=== PATIENT | male | born 1955 | race Caucasian/White ===

== ENCOUNTER 2019-12-06 00:54 | Day surgery (SDC) | payer BC, SELFPAY ==
[2019-12-05 09:56] VITALS: BMI 28.5
[2019-12-06 12:53] VITALS: BP 137/77; PULSE 75; RESP 16; TEMP 36.8; O2SAT 97
[2019-12-06] MEDS: LACTATED RINGERS 1,000 ML 150 ML IV CONT (13:09)
--- NOTE | 2019-12-06 13:18 | P.PNAN_ITS ---
Anes - Initial Pre Proc Eval Procedure: Operation Date: 12/06/19 14:00 Proposed Procedures p Screening Colonoscopy - Tate Wadsworth MD Date/Time: 12/06/19 13:18 Surgeon: Tate Wadsworth MD Pre Op Diagnosis: Neoplasm Screening Patient Data Age: 63 Gender: M Height: 5 ft 11 in Weight: 89.8 kg Last Vital Signs Temp 98.2 F 12/06/19 12:53 Pulse 75 12/06/19 12:53 Resp 16 12/06/19 12:53 BP 137/77 12/06/19 12:53 Pulse Ox 97 12/06/19 12:53 Allergies Allergy/AdvReac Type Severity Reaction Status Date / Time No Known Allergies Allergy Unknown Verified 12/06/19 12:51 Home Medications Medication Instructions Recorded Confirmed Type acetaminophen 650 mg PO Q4H PRN 08/25/19 12/06/19 History amlodipine 5 mg PO DAILY 08/25/19 12/06/19 History metoprolol tartrate 50 mg PO DAILY 08/25/19 12/06/19 History Patient hx anesthesia problems: none Family hx anesthesia problems: none [facility] Past Medical History Medical History (Updated 12/06/19 @ 13:12 by Robert Valdez MD) Hypertension Family History Family History (Updated 03/24/18 @ 15:19 by DOCTOR UNKNOWN) Grandparent Family history of malignant neoplasm Family history of malignant neoplasm of breast Family history of malignant neoplasm of breast in first degree relative Sibling Family history of thyroid disease Other Family history of arthritis Social History Social History Smoking status: Current every day smoker Alcohol intake: current Anes - Eval Final PreProcedure Day of Procedure 12/06/19 13:18 Patient weight: normal Heart: regular rate and rhythm Lungs: clear to auscultation Airway: Mallampati scale class II Neurological: alert and oriented Last oral intake: >/= 8 hours ASA classification: II Emergent: no Anesthetic plan: proceed Anesthesia type and monitoring: general GIVS and standard monitoring Informed Consent: The patient's anesthetic plan and its attendant risks and benefits were discussed with the patient/family/POA. Questions were solicited and answers provided to the satisfaction of the patient/family/POA.
--- NOTE | 2019-12-06 14:00 | PM.HPGS ---
History of Present Illness History of Present Illness Consent: Risks, benefits, and alternatives have been discussed and questions answered. Patient agrees to proceed with procedure. Chief complaint: Neoplasm Screening Narrative: Thanh Roe is a 63 year old male here for screening colonoscopy, last one 10 years ago. Review of Systems Constitutional: Constitutional: Denies headache(s) and Denies weakness Eyes: Eyes: Denies blurry vision ENT: Reports Normal hearing present, Denies headache(s) and Denies neck pain Cardiovascular: Cardiovascular: Denies chest pain and Denies dyspnea Respiratory: Respiratory: Denies dyspnea Gastrointestinal: Gastrointestinal: Reports no additional gastrointestinal complaints Genitourinary: Genitourinary: Denies dysuria Musculoskeletal: Musculoskeletal: Denies neck pain Integumentary/Breasts: Skin/Breast: Denies dry skin Neurologic: Reports Normal hearing present, Denies headache(s) and Denies weakness Psychiatric: Psychiatric: Denies anxiety Endocrine: Endocrine: Denies change in body appearance Hematologic/Lymphatic: Hematologic/Lymphatic: Denies easy bleeding Allergic/Immunologic: Allergic/Immunologic: Denies urticaria PMFSH Past Medical History Medical History (Updated 12/06/19 @ 14:01 by Tate Wadsworth MD) Colon cancer screening Hypertension Family History Family History (Updated 03/24/18 @ 15:19 by DOCTOR UNKNOWN) Grandparent Family history of malignant neoplasm Family history of malignant neoplasm of breast Family history of malignant neoplasm of breast in first degree relative Sibling Family history of thyroid disease Other Family history of arthritis Social History Social History Smoking status: Current every day smoker Alcohol intake: current Meds Home Medications and Allergies Home Medications Medication Instructions Recorded Confirmed Type acetaminophen 650 mg PO Q4H PRN 08/25/19 12/06/19 History amlodipine 5 mg PO DAILY 08/25/19 12/06/19 History metoprolol tartrate 50 mg PO DAILY 08/25/19 12/06/19 History Allergies Allergy/AdvReac Type Severity Reaction Status Date / Time No Known Allergies Allergy Unknown Verified 12/06/19 12:51 Vital Signs Vital Signs - 24 hr 12/06/19 12:53 Temperature 98.2 F Pulse Rate 75 Respiratory Rate 16 Blood Pressure 137/77 Pulse Oximetry 97 Exam Const: General: comfortable and no acute distress HENMT: General nose exam: Normal nares present Eyes: General: appearance normal, both eyes and all related structures Neck: Neck: no JVD Resp: Auscultation: clear to auscultation bilaterally Cardio: Rate: regular rate Rhythm: regular rhythm GI: Inspection: non-distended GI Palp: Yes Soft to palpation Skin: General skin exam: normal color Neuro: General: gait normal Speech: normal speech Extrem: General: normal to inspection Psych: Mental Status: mental status grossly normal Assessment and Plan Assessment and plan (1) Colon cancer screening: Code(s): Z12.11 - Encounter for screening for malignant neoplasm of colon Status: Acute Assessment and Plan: will proceed with colonoscopy (2) Benign essential hypertension: Code(s): I10 - Essential (primary) hypertension Status: Acute
[2019-12-06 14:34] VITALS: BP 106/58; PULSE 85; RESP 27; O2SAT 93
[2019-12-06 14:44] VITALS: BP 103/56; PULSE 82; RESP 26; O2SAT 93
[2019-12-06 14:54] VITALS: BP 134/74; PULSE 75; RESP 21; O2SAT 100
== END 2019-12-06 15:05 | disposition home or self-care (01) ==
PROVIDERS: PCP Internal Medicine; Visit Provider Internal Medicine Gastroenterology
PROC: 0DJD8ZZ Inspection of Lower Intestinal Tract, Via Natural or Artificial Opening Endoscopic (ICD-10-PCS; CPT 45378; principal; 2019-12-06 14:00)
DX: Z12.11 Encounter for screening for malignant neoplasm of colon (principal); D12.3 Benign neoplasm of transverse colon; D12.4 Benign neoplasm of descending colon; K63.5 Polyp of colon; K57.30 Diverticulosis of large intestine without perforation or abscess without bleeding; K64.8 Other hemorrhoids; I10 Essential (primary) hypertension; F17.210 Nicotine dependence, cigarettes, uncomplicated
CPT/HCPCS: 45385; 88305; J2704; J7120

== ENCOUNTER 2020-05-04 15:09 | Emergency (ER) | payer BC, SELFPAY ==
--- NOTE | ~2020-05-04 | CT_ITS ---
EXAMINATION: CT abdomen pelvis wo con DATE: 05/04/2020 16:04 INDICATION: Right lower quadrant pain TECHNIQUE: Computed tomography (CT) of the abdomen and pelvis was performed without intravenous contr ast. The dose-length product was 721.48 mGy-cm. Automated exposure control and iterative reconstructi on technique were employed. COMPARISON: CT dated 12/13/2013 FINDINGS: Lung bases are unremarkable. No significant pleural or pericardial effusion. Heart size nor mal. Moderate size hiatal hernia. There is a 3-4 mm right ureteral stone just proximal to the UVJ wit h mild right hydroureteronephrosis. There is perinephric and periureteral edema. There is a 2.6 cm ri ght renal cyst. There are multiple left renal stones, largest being 3 mm maximum dimension. There is atherosclerosis of the aorta. Bladder is unremarkable. There is a 4 cm left adrenal adenoma without s ignificant change. The liver, spleen, and pancreas within normal limits for noncontrast CT. Small fat-containing umbilic al hernia. Nonobstructive bowel gas pattern. Normal appendix. Gallbladder is present. There is athero sclerosis of the aorta without aneurysm. No lymphadenopathy. Colonic diverticulosis without evidence for diverticulitis. No free air or free fluid. Moderate lumbar spondylosis. IMPRESSION: 1. 3-4 mm distal right ureteral stone just proximal to the UVJ. There is mild right hydroureteronephr osis with perinephric and periureteral edema. 2: Nonobstructing left nephrolithiasis. 3: 4 cm left adrenal adenoma versus hyperplasia. Reviewed, dictated and finalized at location A. IMPRESSION: 1. 3-4 mm distal right ureteral stone just proximal to the UVJ. There is mild r ight hydroureteronephrosis with perinephric and periureteral edema. 2: Nonobstructing left nephrolithiasis. 3: 4 cm left adrenal adenoma versus hyperplasia.
[2020-05-04 15:24] VITALS: BP 207/95; PULSE 82; RESP 20; TEMP 36.6; O2SAT 98
[2020-05-04 15:37] LABS: Basophils Percent Auto 0.2 % (0.2-1.2); Eosinophils Percent Auto 0.3 % (0-4.4); Hematocrit 47.2 % (42.0-52.0); Hemoglobin 15.9 g/dL (14.0-18.0); Immature Granulocyte Absolute 0.05 K/mm3 (0.00-0.031); Immature Granulocyte Percent A 0.4 % (0-0.5); Lymphocytes Absolute Auto 1.58 K/mm3 (0.9-3.2); Lymphocytes Percent Auto 12.9 % (18.3-44.2); Mean Corpuscular HGB Conc 33.7 g/dl (32-36); Mean Corpuscular Hemoglobin 31.5 pg (26-34); Mean Corpuscular Volume 93.5 fl (80-100); Mean Platelet Volume 10.2 fl (7.4-10.4); Monocytes Absolute Auto 0.8 K/mm3 (0.1-0.6); Monocytes Percent Auto 6.1 % (2.6-8.5); Neutrophils Absolute Auto 9.8 K/mm3 (1.3-6.7); Neutrophils Percent Auto 80.1 % (45.5-73.1); Platelet Count Result 246 k/mm3 (150-375); Red Blood Count 5.05 M/mm3 (4.6-6.20); Red Cell Distribution Width 12.7 % (11.5-14.5); White Blood Count 12.3 K/mm3 (4.5-10.0)
[2020-05-04] MEDS: MORPHINE SULFATE 4 MG/ML INJ IV PUSH ×2 (15:46→16:55)
[2020-05-04] MEDS: SODIUM CHLORIDE 0.9% IV 1,000 ML 999 ML IV CONT ×2 (15:46→16:55)
--- NOTE | 2020-05-04 15:47 | ED.ABDPAIN ---
HPI - Abdominal Pain General Chief Complaint: Abdominal Pain Stated Complaint: ABD PAIN X1D Time Seen by Provider: 05/04/20 15:23 History of Present Illness HPI narrative: Patient is a 64-year-old man who presents the ER with abdominal pain. Began yesterday and was in his periumbilical region. Reports while he was at work it moved down into his right lower quadrant. He has had some mild diarrhea with this. He is also become diaphoretic. No documented fevers or chills. Denies any urinary frequency/urgency/hematuria. No history of kidney stones. He does have history of diverticulitis. Has not found any alleviating factors. Worse with movement. Related Data Allergies Allergy/AdvReac Type Severity Reaction Status Date / Time No Known Allergies Allergy Unknown Verified 12/06/19 12:51 Review of Systems Review of Systems: All systems reviewed & are unremarkable except as noted in HPI and below Constitutional: Constitutional: Denies chills, Denies fever(s) and Denies weakness Comments: Sweats ENT: Denies nasal congestion and Denies sore throat Cardiovascular: Cardiovascular: Denies chest pain Respiratory: Respiratory: Denies cough, Denies dyspnea and Denies wheezing Gastrointestinal: Gastrointestinal: Reports abdominal pain, Reports diarrhea, Denies nausea and Denies vomiting Genitourinary: Genitourinary: Denies dysuria, Denies urinary frequency and Denies urinary incontinence PMFSH Past Medical History Medical History (Updated 05/04/20 @ 18:25 by Teofilo Villegas MD) Colon cancer screening Diverticulitis Hypertension Surgical History Surgical History (Updated 05/04/20 @ 15:49 by Teofilo Villegas MD) H/O colonoscopy Family History Family History (Updated 03/24/18 @ 15:19 by DOCTOR UNKNOWN) Grandparent Family history of malignant neoplasm Family history of malignant neoplasm of breast Family history of malignant neoplasm of breast in first degree relative Sibling Family history of thyroid disease Other Family history of arthritis Social History Social History Smoking status: Current every day smoker Alcohol intake: current Gender identity (if verbalized by the patient): Female Exam Narrative: Exam Narrative: GENERAL: Uncomfortable-appearing, well-nourished, and in no acute distress. HEAD: Normocephalic, atraumatic. ENT: Mucous membranes moist. CHEST: Clear to auscultation. No respiratory distress. HEART: Regular rate and rhythm. Normal peripheral pulses. ABDOMEN: Soft, TTP in the RLQ with guarding, nondistended. EXTREMITIES: Normal range of motion. No edema. SKIN: Warm, diaphoretic, no rash. NEURO: Alert and oriented x3. PSYCH: Normal mood and affect. Course Course Emergency Course: Patient has had 2 L of IV fluid and 2 rounds pain medication. Feels like he could tolerate attempting to pass a stone at home. Will give pain medication, Flomax, and antiemetics for him. Discussed return precautions and patient verbalized understanding. Vital Signs Vital signs: Vital Signs Temperature 97.8 F 05/04/20 15:24 Pulse Rate 82 05/04/20 15:24 Respiratory Rate 20 05/04/20 15:24 Blood Pressure 207/95 H 05/04/20 15:24 Pulse Oximetry 98 05/04/20 15:24 Temperature 97.8 F 05/04/20 15:24 Pulse Rate 98 05/04/20 18:18 Respiratory Rate 20 05/04/20 18:18 Blood Pressure 184/93 H 05/04/20 16:52 Pulse Oximetry 98 05/04/20 18:18 MDM - Abdominal Pain Lab Data Result diagrams: 05/04/20 15:27 05/04/20 15:27 Labs: Lab Results 05/04/20 05/04/20 Range/Units 15:27 15:27 WBC 12.3 H (4.5-10.0) K/mm3 RBC 5.05 (4.6-6.20) M/mm3 Hgb 15.9 (14.0-18.0) g/dL Hct 47.2 (42.0-52.0) % MCV 93.5 (80-100) fl MCH 31.5 (26-34) pg MCHC 33.7 (32-36) g/dl RDW 12.7 (11.5-14.5) % Plt Count 246 (150-375) k/mm3 MPV 10.2 (7.4-10.4) fl Immature Gran % (Auto) 0.4 (0-0.5) % Neut % (Auto) 80.1 H
[2020-05-04 15:49] LABS: Alanine Aminotransferase 29 U/L (4-50); Albumin Level 4.6 g/dL (3.5-5.1); Alkaline Phosphatase 131 U/L (38-126); Aspartate Amino Transferase 28 U/L (17-59); Blood Urea Nitrogen 18 mg/dL (9-20); Calcium 9.3 mg/dL (8.4-10.2); Carbon Dioxide 22 mmol/L (22-30); Chloride 104 mmol/L (98-107); Estimated CRCL calculation 44 ml/min; Estimated Glomerular Filt Rate 43; Glucose 128 mg/dL (75-110); Lipase 130 U/L (23-300); Potassium 4.1 mmol/L (3.4-5.0); Sodium 137 mmol/L (137-145)
[2020-05-04 16:52] VITALS: BP 184/93; PULSE 86; RESP 20; O2SAT 98
[2020-05-04 18:18] VITALS: PULSE 98; RESP 20; O2SAT 98
[2020-05-04 20:17] VITALS: BP 180/82; PULSE 94; RESP 20; O2SAT 98
== END 2020-05-04 20:19 | disposition home or self-care (01) ==
PROVIDERS: Emergency Provider Emergency Medicine; PCP Internal Medicine
DX: N13.2 Hydronephrosis with renal and ureteral calculous obstruction (principal); I10 Essential (primary) hypertension; F17.200 Nicotine dependence, unspecified, uncomplicated; R93.5 Abnormal findings on diagnostic imaging of other abdominal regions, including retroperitoneum
CPT/HCPCS: 36415; 74176; 80053; 83690; 85025; 96361; 96374; 96376; 99284; J2270; J7030

== ENCOUNTER → 2020-06-08 07:57 | Outpatient (CLI) | payer BC, SELFPAY ==
--- NOTE | ~2020-06-08 | XR_ITS ---
EXAMINATION: XR elbow RT min 3V DATE: 06/08/2020 08:11 INDICATION: Right elbow pain. TECHNIQUE: 4 views of right elbow were obtained. COMPARISON: None. FINDINGS: Bone alignment is normal. No fracture. 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 There is an elbow joint effusion with loose bodies. IMPRESSION: 1. Moderate elbow joint osteoarthritis. 2. Elbow joint effusion with loose bodies. Reviewed, dictated and finalized at location B.
== END ==
PROVIDERS: PCP Internal Medicine; Visit Provider Nurse Practitioner
DX: M25.529 Pain in unspecified elbow (principal); M19.021 Primary osteoarthritis, right elbow; M25.421 Effusion, right elbow; M24.021 Loose body in right elbow
CPT/HCPCS: 73080

== ENCOUNTER 2021-04-24 12:02 | Outpatient (CLI) | payer BC, SELFPAY ==
--- NOTE | 2021-04-24 | ECG_ITS ---
Measurements Intervals [place] Rate: 68 P: 47 MA: 144 QRS: -1 QRSD: 101 T: 17 QT: 368 QTc: 393 Interpretive Statements SINUS RHYTHM INCOMPLETE RIGHT BUNDLE BRANCH BLOCK PEAKED T WAVES- CONSIDER HYPERKALEMIA OR ISCHEMIA ABNORMAL ECG Electronically Signed On 04-24-2021 13:48:01 CDT by Raymundo Ortiz D.O.
[2021-04-24 12:47] LABS: Hematocrit 45.5 % (42.0-52.0); Hemoglobin 14.5 g/dL (14.0-18.0); Mean Corpuscular HGB Conc 31.9 g/dl (32-36); Mean Corpuscular Hemoglobin 30.6 pg (26-34); Mean Platelet Volume 10.4 fl (7.4-10.4); Platelet Count Result 237 k/mm3 (150-375); Red Blood Count 4.74 M/mm3 (4.6-6.20); White Blood Count 9.2 K/mm3 (4.5-10.0)
[2021-04-24 12:55] LABS: Alanine Aminotransferase 21 U/L (4-50); Alkaline Phosphatase 109 U/L (38-126); Anion Gap 8 mmol/L (8-16); Aspartate Amino Transferase 24 U/L (17-59); Bilirubin,Total 0.4 mg/dL (0.2-1.3); Blood Urea Nitrogen 16 mg/dL (9-20); Calcium 9.3 mg/dL (8.4-10.2); Carbon Dioxide 27 mmol/L (22-30); Chloride 106 mmol/L (98-107); Estimated Glomerular Filt Rate > 60; Glucose 104 mg/dL (75-110); Potassium 4.1 mmol/L (3.4-5.0); Sodium 141 mmol/L (137-145)
== END 2021-04-24 12:03 | disposition home or self-care (01) ==
PROVIDERS: PCP Internal Medicine; Visit Provider Orthopaedic Surgery
DX: Z01.818 Encounter for other preprocedural examination (principal); R94.31 Abnormal electrocardiogram [ECG] [EKG]
CPT/HCPCS: 36415; 80053; 85027; 93005

== ENCOUNTER 2022-02-14 01:04 | Day surgery (SDC) | payer BC, SELFPAY ==
[2022-02-12 12:27] VITALS: BMI 24.9
[2022-02-14 08:58] VITALS: BP 150/85; PULSE 78; RESP 19; TEMP 36.4; O2SAT 96
[2022-02-14] MEDS: LACTATED RINGERS 1,000 ML 150 ML IV CONT (09:09)
--- NOTE | 2022-02-14 09:32 | PM.HPGS ---
History of Present Illness History of Present Illness Consent: Risks, benefits, and alternatives have been discussed and questions answered. Patient agrees to proceed with procedure. Chief complaint: hx of colon polyps Narrative: Thanh Roe is a 66 year old male with ~ 10 polyps removed 2 years ago Review of Systems Constitutional: Constitutional: Denies headache(s) and Denies weakness Eyes: Eyes: Denies blurry vision ENT: Reports Normal hearing present, Denies headache(s) and Denies neck pain Cardiovascular: Cardiovascular: Denies chest pain and Denies dyspnea Respiratory: Respiratory: Denies dyspnea Gastrointestinal: Gastrointestinal: Reports no additional gastrointestinal complaints Genitourinary: Genitourinary: Denies dysuria Musculoskeletal: Musculoskeletal: Denies neck pain Integumentary/Breasts: Skin/Breast: Denies dry skin Neurologic: Reports Normal hearing present, Denies headache(s) and Denies weakness Psychiatric: Psychiatric: Denies anxiety Endocrine: Endocrine: Denies change in body appearance Hematologic/Lymphatic: Hematologic/Lymphatic: Denies easy bleeding Allergic/Immunologic: Allergic/Immunologic: Denies urticaria PMFSH Past Medical History Medical History (Updated 02/14/22 @ 09:33 by Tate Wadsworth MD) Adenomatous colon polyp Arthritis of right elbow BMI 28.0-28.9,adult Colon cancer screening Diverticulitis Hypertension Surgical History Surgical History H/O colonoscopy Family History Family History Grandparent Family history of malignant neoplasm Family history of malignant neoplasm of breast Family history of malignant neoplasm of breast in first degree relative Sibling Family history of thyroid disease Other Family history of arthritis Social History Social History (Updated 07/09/21 @ 11:09 by Kacey Calix CNA) Smoking packs per day: 1 Smoking cigarettes per day: 20.0 Years smoked: 50 Smoking pack-years: 50.00 Smoking status: Current every day smoker Tobacco type: cigarettes Second hand tobacco smoke exposure: Yes Alcohol intake: current Drinks per week: 1 Alcohol use details: 2-3 DRINKS A MONTH Substance use: current Substance use type: marijuana Last use: 02/11 Living arrangements: with family 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 Gender identity (if verbalized by the patient): Male Spiritual care concerns: No Meds Home Medications and Allergies Home Medications Medication Instructions Recorded Confirmed Type aspirin 81 mg tablet,delayed 81 mg PO DAILY tablet 07/09/21 02/12/22 History release multivitamin 1 tablet PO DAILY 07/09/21 02/12/22 History metoprolol tartrate 50 mg tablet See Rx Instructions .ROUTE 12/17/21 02/12/22 Rx .COMPLEX #90 tablet tamsulosin 0.4 mg capsule 0.4 mg PO QHS #30 cap 01/29/22 02/12/22 Rx amlodipine 5 mg PO DAILY 02/12/22 02/12/22 History Allergies Allergy/AdvReac Type Severity Reaction Status Date / Time No Known Allergies Allergy Unknown Verified 02/14/22 08:57 Vital Signs Vital Signs - 24 hr 02/14/22 08:58 Temperature 97.6 F Pulse Rate 78 Respiratory Rate 19 Blood Pressure 150/85 H Pulse Oximetry 96 Exam Const: General: comfortable and no acute distress HENMT: General nose exam: Normal nares present Eyes: General: appearance normal, both eyes and all related structures Neck: Neck: no JVD Resp: Auscultation: clear to auscultation bilaterally Cardio: Rate: regular rate Rhythm: regular rhythm GI: Inspection: non-distended GI Palp: Yes Soft to palpation Skin: General skin exam: normal color Neuro: General: gait normal Speech: normal speech Extrem: General: normal to inspection Psych: Mental Status: mental status grossly normal Assessment and Plan Assessment and plan (1) Adenomatou
--- NOTE | 2022-02-14 09:33 | WPDANESEPPF ---
Anes - Initial Pre Proc Eval Procedure: Operation Date: 02/14/22 09:30 Proposed Procedures p Screening Colonoscopy - Tate Wadsworth MD Date/Time: 02/14/22 09:33 Surgeon: Tate Wadsworth MD Pre Op Diagnosis: hx of colon polyps Patient Data Age: 66 Gender: M Height: 1.8 m Weight: 91.5 kg Last Vital Signs Temp 97.6 F 02/14/22 08:58 Pulse 78 02/14/22 08:58 Resp 19 02/14/22 08:58 BP 150/85 H 02/14/22 08:58 Pulse Ox 96 02/14/22 08:58 Allergies Allergy/AdvReac Type Severity Reaction Status Date / Time No Known Allergies Allergy Unknown Verified 02/14/22 08:57 Home Medications Medication Instructions Recorded Confirmed Type aspirin 81 mg tablet,delayed 81 mg PO DAILY tablet 07/09/21 02/12/22 History release multivitamin 1 tablet PO DAILY 07/09/21 02/12/22 History metoprolol tartrate 50 mg tablet See Rx Instructions .ROUTE 12/17/21 02/12/22 Rx .COMPLEX #90 tablet tamsulosin 0.4 mg capsule 0.4 mg PO QHS #30 cap 01/29/22 02/12/22 Rx amlodipine 5 mg PO DAILY 02/12/22 02/12/22 History Patient hx anesthesia problems: none Family hx anesthesia problems: none Results Review: All pre-operative results and documents have been reviewed as part of the pre-operative evaluation. ON LICENSE OF [facility] Past Medical History Medical History (Updated 02/14/22 @ 09:33 by Tate Wadsworth MD) Adenomatous colon polyp Arthritis of right elbow BMI 28.0-28.9,adult Colon cancer screening Diverticulitis Hypertension Surgical History Surgical History H/O colonoscopy Family History Family History Grandparent Family history of malignant neoplasm Family history of malignant neoplasm of breast Family history of malignant neoplasm of breast in first degree relative Sibling Family history of thyroid disease Other Family history of arthritis Social History Social History (Updated 07/09/21 @ 11:09 by Kacey N. 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 Informed Consent: The patient's anesthetic plan and its attendant risks and benefits were discussed with the patient/family/POA. Questions were solicited and answers provided to the satisfaction of the patient/family/POA.
[2022-02-14 10:00] VITALS: BP 144/83; PULSE 78; RESP 21; O2SAT 100
[2022-02-14 10:10] VITALS: BP 155/86; PULSE 78; RESP 21; O2SAT 100
[2022-02-14 10:20] VITALS: BP 134/67; PULSE 72; RESP 22; O2SAT 97
== END 2022-02-14 10:28 | disposition home or self-care (01) ==
PROVIDERS: PCP Internal Medicine; Visit Provider Internal Medicine Gastroenterology
PROC: 0DJD8ZZ Inspection of Lower Intestinal Tract, Via Natural or Artificial Opening Endoscopic (ICD-10-PCS; CPT 45378; principal; 2022-02-14 09:30)
DX: Z12.11 Encounter for screening for malignant neoplasm of colon (principal); Z86.010 Personal history of colon polyps; K57.30 Diverticulosis of large intestine without perforation or abscess without bleeding; K64.8 Other hemorrhoids; K63.5 Polyp of colon; D12.0 Benign neoplasm of cecum; Z79.82 Long term (current) use of aspirin; M19.90 Unspecified osteoarthritis, unspecified site; I10 Essential (primary) hypertension; F17.210 Nicotine dependence, cigarettes, uncomplicated; F12.90 Cannabis use, unspecified, uncomplicated
CPT/HCPCS: 45380; 45385; 88305; J2704; J7120

== ENCOUNTER 2023-02-13 07:36 | Outpatient (CLI) | payer BC, SELFPAY ==
--- NOTE | ~2023-02-13 | CT_ITS ---
EXAMINATION: CT lung screening DATE: 02/13/2023 07:53 INDICATION: Cancer screening. TECHNIQUE: Computed tomography (CT) of the chest was performed without intravenous contrast. The dose -length product was 184.19 mGy-cm. Automated exposure control and iterative reconstruction technique were employed. COMPARISON: 01/09/2015 FINDINGS: There is mediastinal and bilateral hilar lymphadenopathy. There are enlarged bilateral axil suzanne lymph nodes. No significant pleural or pericardial effusion. There is a low-density mass in the left adrenal gland measuring 4.6 x 2.6 cm with density measurement of -4.5 Hounsfield units, most lik yon benign adenoma. There is a possible subtle hypodensity in the right hepatic lobe. Recommend corre lation with contrast-enhanced CT or MRI. There is emphysema. No endobronchial lesions. No pneumothora x. There are small bilateral pulmonary nodules measuring 3 mm or less which are not significantly milena nged. There is a new 5 mm left lower lobe nodule, image 93. IMPRESSION: 1. Lung-RADS category 3: Probably benign. Further evaluation is recommended with noncontrast low-dose chest CT in 6 months. 2: New extensive axillary, mediastinal and bilateral hilar lymph node enlargement which may be second diane to metastatic disease or lymphoma. Correlate for history of malignancy. Reviewed, dictated and finalized at location A. IMPRESSION: 1. Lung-RADS category 3: Probably benign. Further evaluation is recommended wit h noncontrast low-dose chest CT in 6 months. 2: New extensive axillary, mediastinal and bilateral hilar lymph node enlargeme nt which may be secondary to metastatic disease or lymphoma. Correlate for hist ory of malignancy.
== END 2023-02-13 07:37 | disposition home or self-care (01) ==
PROVIDERS: PCP Internal Medicine; Visit Provider Nurse Practitioner Family
DX: Z12.2 Encounter for screening for malignant neoplasm of respiratory organs (principal); R59.0 Localized enlarged lymph nodes; F17.210 Nicotine dependence, cigarettes, uncomplicated
CPT/HCPCS: 71271

== ENCOUNTER 2023-03-06 08:23 | Outpatient (CLI) | payer BC, SELFPAY ==
--- NOTE | ~2023-03-06 | CT_ITS ---
EXAMINATION: CT abdomen w con DATE: 03/06/2023 09:08 INDICATION: New abnormal lymphadenopathy seen on prior CT examination. TECHNIQUE: Computed tomography (CT) of the abdomen and pelvis was performed with 100 cc Omnipaque 350 intravenous contrast. The dose-length product was 584.76 mGy-cm. Automated exposure control and iter ative reconstruction technique were employed. COMPARISON: CT dated 02/13/2023 and 05/04/2020. FINDINGS: There is partially visualized subcarinal and bilateral hilar lymphadenopathy. There are enl arged retrocrural, portacaval, lesser curvature, splenic hilar and para-aortic lymph nodes. Fatty infiltration of the liver. The spleen, pancreas right adrenal gland are unremarkable. There is a left adrenal mass measuring 2.9 x 2.5 cm, most likely benign adenoma. There are bilateral renal cys ts. There is nonobstructing 5 mm left renal stone. Gallbladder is present. Nonobstructive bowel patte rn. There is moderate-severe lower thoracic and lumbar spondylosis. No free air or free fluid. IMPRESSION: 1. Widespread lower thoracic and abdominal lymphadenopathy, most likely secondary to lymphoma. Metast atic disease less favored. 2: Nonobstructing left nephrolithiasis. Reviewed, dictated and finalized at location B. IMPRESSION: 1. Widespread lower thoracic and abdominal lymphadenopathy, most likely seconda ry to lymphoma. Metastatic disease less favored. 2: Nonobstructing left nephrolithiasis.
[2023-03-06 09:03] LABS: Estimated Glomerular Filt Rate > 60
[2023-03-06 10:17] LABS: Hematocrit 43.8 % (42.0-52.0); Hemoglobin 14.4 g/dL (14.0-18.0); Mean Corpuscular HGB Conc 32.9 g/dl (32-36); Mean Corpuscular Volume 94.4 fl (80-100); Platelet Count Result 167 k/mm3 (150-375); Red Blood Count 4.64 M/mm3 (4.6-6.20); Red Cell Distribution Width 13.6 % (11.5-14.5); White Blood Count 10.9 K/mm3 (4.5-10.0)
[2023-03-06 10:34] LABS: Alanine Aminotransferase 32 U/L (6-50); Albumin Level 4.2 g/dL (3.5-5.1); Alkaline Phosphatase 141 U/L (38-126); Anion Gap 4 mmol/L (8-16); Aspartate Amino Transferase 31 U/L (17-59); Bilirubin,Total 0.7 mg/dL (0.2-1.3); Blood Urea Nitrogen 16 mg/dL (9-20); CRP < 0.5 mg/dL (<1.0); Calcium 8.7 mg/dL (8.4-10.2); Carbon Dioxide 29 mmol/L (22-30); Chloride 103 mmol/L (98-107); Cholesterol 189 mg/dL (0-200); Estimated Glomerular Filt Rate > 60; Glucose 98 mg/dL (65-110); HDL Direct 32 mg/dL; Potassium 4.4 mmol/L (3.4-5.0); Sodium 136 mmol/L (137-145); Triglycerides 141 mg/dL (<150)
[2023-03-06 10:43] LABS: LDL Cholesterol Direct 111 mg/dL
[2023-03-06 11:04] LABS: Erythrocyte Sedimentation Rate 14 mm/hr (0-20)
== END 2023-03-06 08:24 | disposition home or self-care (01) ==
PROVIDERS: PCP Family Medicine; Visit Provider Family Medicine
DX: Z00.00 Encounter for general adult medical examination without abnormal findings (principal); R59.1 Generalized enlarged lymph nodes; Z72.0 Tobacco use; N20.0 Calculus of kidney
CPT/HCPCS: 74160; 80053; 80061; 85027; 85652; 86140; Q9967

== ENCOUNTER 2023-03-27 15:28 | Outpatient (CLI) | payer BC, SELFPAY ==
[2023-03-27 15:40] LABS: Basophils Percent Auto 0.4 % (0.2-1.2); Eosinophils Absolute Auto 0.1 K/mm3 (0-0.3); Eosinophils Percent Auto 1.1 % (0-4.4); Hematocrit 42.8 % (42.0-52.0); Hemoglobin 14.2 g/dL (14.0-18.0); Immature Granulocyte Absolute 0.03 K/mm3 (0.00-0.031); Immature Granulocyte Percent A 0.3 % (0-0.5); Lymphocytes Absolute Auto 5.03 K/mm3 (0.9-3.2); Lymphocytes Percent Auto 45.3 % (18.3-44.2); Mean Corpuscular HGB Conc 33.2 g/dl (32-36); Mean Corpuscular Hemoglobin 31.1 pg (26-34); Mean Corpuscular Volume 93.7 fl (80-100); Mean Platelet Volume 9.6 fl (7.4-10.4); Monocytes Absolute Auto 1.1 K/mm3 (0.1-0.6); Monocytes Percent Auto 9.6 % (2.6-8.5); Neutrophils Absolute Auto 4.8 K/mm3 (1.3-6.7); Neutrophils Percent Auto 43.3 % (45.5-73.1); Platelet Count Result 173 k/mm3 (150-375); Red Blood Count 4.57 M/mm3 (4.6-6.20); Red Cell Distribution Width 13.4 % (11.5-14.5); White Blood Count 11.1 K/mm3 (4.5-10.0)
[2023-03-27 16:18] LABS: Alanine Aminotransferase 37 U/L (6-50); Albumin Level 4.5 g/dL (3.5-5.1); Alkaline Phosphatase 140 U/L (38-126); Anion Gap 5 mmol/L (8-16); Aspartate Amino Transferase 37 U/L (17-59); Bilirubin,Total 0.9 mg/dL (0.2-1.3); Blood Urea Nitrogen 18 mg/dL (9-20); Calcium 9.4 mg/dL (8.4-10.2); Carbon Dioxide 29 mmol/L (22-30); Chloride 102 mmol/L (98-107); Estimated Glomerular Filt Rate > 60; Glucose 104 mg/dL (65-110); Lactate Dehydrogenase 248 U/L (120-246); Potassium 4.4 mmol/L (3.4-5.0); Sodium 136 mmol/L (137-145)
== END 2023-03-27 15:29 | disposition home or self-care (01) ==
LOC: ANHLAB 15:29
PROVIDERS: PCP Family Medicine; Visit Provider Internal Medicine Hematology & Oncology
DX: R59.1 Generalized enlarged lymph nodes (principal)
CPT/HCPCS: 36415; 80053; 83615; 85025; 88184

== ENCOUNTER 2023-04-10 09:11 | Outpatient (CLI) | payer BC, SELFPAY ==
--- NOTE | ~2023-04-10 | US_ITS ---
EXAMINATION: US biopsy lymph node DATE: 04/10/2023 10:08 INDICATION: Left axillary lymphadenopathy. TECHNIQUE: The procedure including the risks, benefits, and alternatives was discussed with the patie nt. Risks discussed included bleeding and infection. The patient understood the risks and agreed to p roceed. The skin overlying the left axilla was prepped and draped in usual sterile fashion. Anesthet ic was administered with 1% lidocaine subcutaneously. An 18 gauge core biopsy needle was then used t o obtain 6 core biopsy specimens under continuous sonographic guidance. The entry site was cleaned an d dressed. There were no immediate complications. FINDINGS: Ultrasound images demonstrate the needle in an enlarged left axillary lymph node. IMPRESSION: 1. Ultrasound-guided core needle biopsy of an enlarged left axillary lymph node. Reviewed, dictated and finalized at location A. IMPRESSION: 1. Ultrasound-guided core needle biopsy of an enlarged left axillary lymph node .
== END 2023-04-10 09:12 | disposition home or self-care (01) ==
PROVIDERS: PCP Family Medicine; Visit Provider Internal Medicine Hematology & Oncology
DX: R59.1 Generalized enlarged lymph nodes (principal)
CPT/HCPCS: 38505; 76942; 88108; 88184; 88185; 88305; 88341; 88342; 88360

== ENCOUNTER 2023-04-20 09:55 | Outpatient (CLI) | payer BC, SELFPAY | END 2023-04-20 09:56 | disposition home or self-care (01) | LOC: ANHLAB 09:57 | PROVIDERS: PCP Family Medicine; Visit Provider Internal Medicine Hematology & Oncology | DX: R59.1 Generalized enlarged lymph nodes (principal) | CPT/HCPCS: 88184 ==

== ENCOUNTER 2023-05-25 00:16 | Day surgery (SDC) | payer BC, SELFPAY ==
--- NOTE | 2023-05-18 14:35 | PC.NURSE ---
Report to the Outpatient Waiting Room, entrance under the green pavilion located off [facility], at time _1000 on date __05/25/23 . Planned Procedure Time: . Time changes happen often and if your time is changed the preop area will call you the afternoon before. - You and your visitor will be asked to self-screen and do not enter if you have any COVID symptoms. - A mask is optional within the hospital at this time. Patients may have clear liquids (water, carbonated beverages, clear teas, apple juice) until 3 hours prior to surgery with a maximum of 20 ounces. - No food from midnight until time of surgery - Infants may have breast milk until 4 hours before surgery, formula 6 hours prior to surgery. - Children will be allowed to drink immediately following surgery. If applicable, please bring a bottle or sippy cup to assist with drinking. Juice, water, soda, and popsicles are readily available. For infants on formula, please bring formula the day of surgery. Pacifiers are allowed. Take the following medications with a SIP of water the morning of surgery: ___AMLODIPINE,METOPROLOL DO NOT STOP ANY OF YOUR OTHER PRESCRIPTION MEDICATIONS PRIOR TO SURGERY ?EXCEPT THE FOLLOWING Medications to discontinue per physician ___ALL VITAMINS/SUPPLEMENTS 3 DAYS PRE OP.LAST DOSE 05/21/23 Please no make-up, nail cymraes, hairspray, perfume, deodorant, or body powder the day of surgery. No jewelry (including any body piercings) or valuables the day of surgery, leave them at home. Please take a shower or bath the night before, or the morning of, surgery with an antibacterial soap. Wear comfortable, loose fitting clothing. Children are encouraged to wear pajamas. - Jewelry must be removed prior to entering the operating room. Rings and piercings that are not removed may be cut off. - The hospital will not accept responsibility for valuables. - Please leave all valuables, including medications, at home the day of surgery. If you are going home after surgery, a licensed transit bus driver must drive you home. - NO public transportation without another adult if you receive anesthesia. - We recommend that an adult stay with you for 24 hours following discharge. - We also recommend that you do not drive, make important decision, drink alcoholic beverages, or take any drugs that were not prescribed by your health care provider for at least 24 hours after your discharge time. For Pediatric surgeries, we recommend two adults accompany the child home. Follow any additional instructions given to you from your surgeon. If you or anyone in your household have experienced Covid symptoms in the past week, please notify your surgeon or the nurse liaison at the phone number below for possible testing. Telephone instructions given to _PATIENT and asked if any additional questions and then verbalized understanding. Patient advised to call surgeon office or pre surgery nurse liaison [phone] if any additional questions.
[2023-05-18 14:40] VITALS: BMI 28.4
--- NOTE | ~2023-05-25 | XR_ITS ---
EXAMINATION: XR fl guide central line place DATE: 05/25/2023 13:56 INDICATION: Port placement. TECHNIQUE: A single intraoperative fluoroscopic view of the chest was obtained. I was not present. Fl uoroscopy exposure time was 57 seconds. COMPARISON: CT chest 02/13/2023 FINDINGS: There is a left internal jugular port with tip in superior vena cava. IMPRESSION: 1. Port tip in superior vena cava. Reviewed, dictated and finalized at location A.
--- NOTE | ~2023-05-25 | XR_ITS ---
EXAMINATION: XR chest port-a-cath/central DATE: 05/25/2023 13:55 INDICATION: Port catheter insertion TECHNIQUE: frontal view of the chest was obtained. COMPARISON: Chest CT dated 02/13/2023 FINDINGS: Interval placement of a left internal jugular central venous port catheter with distal tip at the cau maxwell superior vena cava. No focal airspace opacities, pulmonary edema, pleural effusion or pneumothora x. Heart size is normal. Right paratracheal widening and enlargement of the bilateral renal hilar sha dows corresponding with mediastinal and bilateral hilar lymphadenopathy likely related to biopsy-prov en lymphoma. IMPRESSION: 1. Left internal jugular central venous port catheter tip at the caudal superior vena cava. No pneumo thorax or other acute cardiopulmonary disease. 2. Mediastinal and bilateral hilar lymphadenopathy consistent with biopsy-proven lymphoma. Reviewed, dictated and finalized at location B. IMPRESSION: 1. Left internal jugular central venous port catheter tip at the caudal superio r vena cava. No pneumothorax or other acute cardiopulmonary disease. 2. Mediastinal and bilateral hilar lymphadenopathy consistent with biopsy-prove n lymphoma.
--- NOTE | 2023-05-25 09:03 | WPDANESEPPF ---
Anes - Initial Pre Proc Eval Procedure: Operation Date: 05/25/23 12:00 Proposed Procedures p Insertion Jesi Cath - Carolina Borjas MD Date/Time: 05/25/23 09:03 Surgeon: Carolina Borjas MD Pre Op Diagnosis: mantle cell lymphoma Patient Data Age: 67 Gender: M Height: 1.82 m Weight: 93.9 kg Allergies Allergy/AdvReac Type Severity Reaction Status Date / Time No Known Allergies Allergy Unknown Verified 05/25/23 10:23 Home Medications Medication Instructions Recorded Confirmed Type aspirin 81 mg tablet,delayed 81 mg PO DAILY 07/09/21 05/18/23 History release (Adult Low Dose Aspirin) calcium carbonate 600 mg calcium 600 mg PO DAILY 06/26/22 05/18/23 History (1,500 mg) tablet (Calcium) omega 2-bll-ptu-fish oil 300 1 cap PO DAILY 06/26/22 05/18/23 History mg-1,000 mg capsule (Fish Oil) amlodipine 5 mg tablet 5 mg PO DAILY #90 tabs 01/26/23 05/18/23 Rx metoprolol tartrate 50 mg tablet See Rx Instructions .Route 01/29/23 05/18/23 Rx .COMPLEX #90 tabs meloxicam 15 mg tablet 15 mg PO DAILY #90 tabs 02/05/23 05/18/23 Rx nubicdzbqscz-estmoyks-ecveen tablet 1 tablet PO DAILY 02/05/23 05/18/23 History zinc acetate 50 mg (zinc) capsule 50 mg PO DAILY 02/05/23 05/18/23 History (Galzin) tamsulosin 0.4 mg capsule 0.4 mg PO HS 05/18/23 05/18/23 History Patient hx anesthesia problems: none Family hx anesthesia problems: none Results Review: All pre-operative results and documents have been reviewed as part of the pre-operative evaluation. [facility] Past Medical History Medical History (Updated 05/25/23 @ 09:04 by Lawrence Guerin DO) Adenomatous colon polyp Arthritis of right elbow BMI 28.0-28.9,adult Colon cancer screening Diverticulitis Hypertension Mantle cell lymphoma Surgical History Surgical History H/O colonoscopy Family History Family History Grandparent Family history of malignant neoplasm Family history of malignant neoplasm of breast Family history of malignant neoplasm of breast in first degree relative Sibling Family history of thyroid disease Other Family history of arthritis Social History Social History Smoking packs per day: 1 Smoking cigarettes per day: 20.0 Years smoked: 50 Smoking pack-years: 50.00 Smoking status: Current every day smoker Tobacco type: cigarettes Second hand tobacco smoke exposure: Yes Alcohol intake: current Drinks per week: 1 Alcohol use details: 2 DRINKS PER MONTH Substance use: current Substance use type: marijuana Last use: 05/17/23 Living arrangements: with family Occupation/Education: occupation 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 Gender identity (if verbalized by the patient): Male Spiritual care concerns: No Anes - Eval Final PreProcedure Day of Procedure 05/25/23 09:03 Patient weight: overweight Heart: regular rate and rhythm Lungs: clear to auscultation Airway: Mallampati scale class II and special considerations poor dentition Neurological: alert and oriented Last oral intake: >/= 8 hours ASA classification: III Emergent: no Anesthetic plan: proceed Anesthesia type and monitoring: general GIVS and standard monitoring Results Review: All pre-operative results and documents have been reviewed as part of the pre-operative evaluation. Informed Consent: The patient's anesthetic plan and its attendant risks and benefits were discussed with the patient/family/POA. Questions were solicited and answers provided to the satisfaction of the patient/family/POA.
[2023-05-25 10:34] VITALS: BP 148/86; PULSE 74; RESP 18; TEMP 36.6; O2SAT 96
[2023-05-25] MEDS: LACTATED RINGERS 1,000 ML 30 ML IV CONT (11:22)
[2023-05-25] MEDS: KETOROLAC 15 MG/ML VIAL (*BKC) IV PUSH (11:22)
[2023-05-25 11:27] LABS: INR 0.9; Partial Thromboplastin Time 26.2 SECONDS (22.3-36.8); Prothrombin Time 12.9 Seconds (11.1-14.7)
--- NOTE | 2023-05-25 11:54 | PM.IMHP ---
H&P: HPI History of Present Illness Date/Time: 05/25/23 11:54 Chief Complaint: lymphoma Narrative: Pt is a 67 y/o M presenting c stage 4 lymphoma. Pt is to start chemotherapy next week and is here to obtain port for access. Pt denies previous central venous catheterization. Pt is left handed. Review of Systems Review of Systems: All systems reviewed & are unremarkable except as noted in HPI and below PMFSH Past Medical History Medical History Adenomatous colon polyp Arthritis of right elbow BMI 28.0-28.9,adult Colon cancer screening Diverticulitis Hypertension Mantle cell lymphoma Surgical History Surgical History H/O colonoscopy Family History Family History Grandparent Family history of malignant neoplasm Family history of malignant neoplasm of breast Family history of malignant neoplasm of breast in first degree relative Sibling Family history of thyroid disease Other Family history of arthritis Social History Social History Smoking packs per day: 1 Smoking cigarettes per day: 20.0 Years smoked: 50 Smoking pack-years: 50.00 Smoking status: Current every day smoker Tobacco type: cigarettes Second hand tobacco smoke exposure: Yes Alcohol intake: current Drinks per week: 1 Alcohol use details: 2 DRINKS PER MONTH Substance use: current Substance use type: marijuana Last use: 05/17/23 Living arrangements: with family Occupation/Education: occupation Additional occupation/education comments: [employer] Gender identity (if verbalized by the patient): Male Spiritual care concerns: No Meds Home Medications and Allergies Home Medications Medication Instructions Recorded Confirmed Type aspirin 81 mg tablet,delayed 81 mg PO DAILY 07/09/21 05/18/23 History release (Adult Low Dose Aspirin) calcium carbonate 600 mg calcium 600 mg PO DAILY 06/26/22 05/18/23 History (1,500 mg) tablet (Calcium) omega 2-mgr-ohv-fish oil 300 1 cap PO DAILY 06/26/22 05/18/23 History mg-1,000 mg capsule (Fish Oil) amlodipine 5 mg tablet 5 mg PO DAILY #90 tabs 01/26/23 05/18/23 Rx metoprolol tartrate 50 mg tablet See Rx Instructions .Route 01/29/23 05/18/23 Rx .COMPLEX #90 tabs meloxicam 15 mg tablet 15 mg PO DAILY #90 tabs 02/05/23 05/18/23 Rx bpbwueujbwxr-xdqafsub-urmagt tablet 1 tablet PO DAILY 02/05/23 05/18/23 History zinc acetate 50 mg (zinc) capsule 50 mg PO DAILY 02/05/23 05/18/23 History (Galzin) tamsulosin 0.4 mg capsule 0.4 mg PO HS 05/18/23 05/18/23 History Allergies Allergy/AdvReac Type Severity Reaction Status Date / Time No Known Allergies Allergy Unknown Verified 05/25/23 10:23 Vital Signs Vital Signs - 24 hr 05/25/23 10:34 Temperature 36.6 C Pulse Rate 74 Respiratory Rate 18 Blood Pressure 148/86 H Pulse Oximetry 96 Oxygen Delivery Room Air Exam Const: General: cooperative, comfortable, no acute distress and ill appearing Neck: Neck: normal visual inspection, full ROM and lymphadenopathy Chest: Chest palpation & inspection: normal inspection of the chest Resp: Auscultation: diminished lung sounds Cardio: Rate: regular rate Rhythm: regular rhythm GI: Inspection: normal to inspection Assessment and Plan Assessment and plan (1) Mantle cell lymphoma: Code(s): C83.10 - Mantle cell lymphoma, unspecified site Status: Acute Assessment and Plan: will setup for VAD placement
--- NOTE | 2023-05-25 11:57 | WPDHPUPDATE1 ---
History and Physical Update Update Date/Time: 05/25/23 11:57 History and Physical has been reviewed, including an updated exam of the patient. There are NO changes in the patient's condition. Risks, benefits, and alternatives have been discussed and questions answered. Patient agrees to proceed with procedure.
[2023-05-25] MEDS: ceFAZolin 2 GM/D5W 50 ML 2 GM/50 ML BAG IVPB (12:21)
[2023-05-25] MEDS: HEPARIN SODIUM 5,000 UNITS/ML VIAL 5000 UNITS IRRIGATION (12:50)
[2023-05-25] MEDS: BUPIVACAINE/EPINEPHRINE 0.5% 10 ML VIAL INFILTRATE (12:50)
--- NOTE | 2023-05-25 13:40 | W.PM.PROC2 ---
Procedure Note - Detailed Date of Procedure 05/25/23 Pre-op Diagnosis mantle cell lymphoma Post-op Diagnosis Same Procedure Performed attempted placement of right internal jugular venous access device, placement of left internal jugular venous access device under both ultrasound and fluoroscopic guidance Surgeon Carolina Borjas MD Anesthesia General and Local Indications 67-year-old male with stage 4 lymphoma needing access for adjuvant chemotherapy Findings unable to pass catheter over sheath in RIJ, 1st stick left IJ Description of Procedure Patient was brought into the operating room and placed in the supine position. After adequate induction of mac anesthesia, the patient was prepped and draped in normal sterile fashion. Time-out was then done to verify the patient's identity, as well as the procedure being performed. I began by evaluating the right internal jugular vein by ultrasound. The vein looked adequate for access. using the ultrasound as guidance, I accessed the right internal jugular vein. I was then able to place into the vein and it was confirmed in position via fluoroscopic guidance. I then made an incision in the right chest and tunneled the catheter to the stick site in the right neck. I then placed the dilating sheath under sterile Seldinger technique over the guidewire into the right internal jugular vein again under fluoroscopic guidance. Once in position, I removed the guidewire and the dilator just leaving the sheath in the vein. I then began to feed the catheter into the vein. I encountered a lot of resistance and difficulty passing the catheter. Despite multiple attempts, I was unable to pass the catheter. Given these findings, I aborted the right side. There was noted to be a lot of lymphadenopathy within the right neck. I then evaluated the left internal jugular vein via ultrasound. This vein looked adequate for cannulation. I began by making a small incision in the left chest. I then used the ultrasound to gain access into the left internal jugular vein. Once access was gained, I placed the guidewire in the vein and confirmed proper positioning. I then locally anesthetized the area in the left chest. I then enlarged the incision including making a subcutaneous pocket inferiorly to allow placement of the port itself. I proceeded to tunnel the catheter from the chest to the left neck insertion site. I then placed a dilating sheath over the guidewire into the left internal jugular vein via sterile Seldinger technique. This was once again done and confirmed via fluoroscopic guidance. I then removed the dilator and the guidewire, now just leaving the sheath in the vein. I then fed the previously flushed catheter into the left internal jugular vein under fluoroscopic guidance. At approximately 29 cm, the catheter was noted to be near the atrial caval junction. I then peeled away the sheath, now just leaving the catheter in the vein. I then was able to easily draw and flush from the catheter. The catheter was cut to fit and attached to the port itself. The port was placed into the previously made subcutaneous pocket and sutured in with 0 Ethibond suture. Final fluoroscopic view showed the termination of the catheter at the atrial caval junction with a nice smooth curvature back to the port itself. I was able to gain access to the port with a Shah needle and was able to easily draw and flush from the port. I then flushed 4 cc of a final heparin flush into the port. The incision was closed with 3 0 Vicryl suture in the subcutaneous tissue and the skin was closed with 4 O Monocryl subcuticular suture. Dermabond was then placed on wound. The patient tolerated the procedure well and will be sent to the recovery room in stable condition. Implants left internal jugular venous access device Estimated Blood Loss 25 Pathology None sent Complications No immediate complications Condition Stable Disposition PACU [facility]
[2023-05-25 13:43] VITALS: BP 144/87; PULSE 81; RESP 18; O2SAT 95
[2023-05-25 14:10] VITALS: BP 145/80; PULSE 67; RESP 16; O2SAT 96
[2023-05-25 14:35] VITALS: BP 126/77; PULSE 63; RESP 16; O2SAT 94
== END 2023-05-25 14:49 | disposition home or self-care (01) ==
PROVIDERS: PCP Family Medicine; Visit Provider Surgery
PROC: (CPT 36561; principal; 2023-05-25 12:00)
DX: C83.10 Mantle cell lymphoma, unspecified site (principal); I10 Essential (primary) hypertension; Z79.82 Long term (current) use of aspirin; F17.210 Nicotine dependence, cigarettes, uncomplicated; F12.90 Cannabis use, unspecified, uncomplicated
CPT/HCPCS: 36561 ×2; 36415; 77001; 85610; 85730; C1788; J0690; J1644; J1885; J2250; J2405; J2704; J3010; J7030; J7040; J7120

== ENCOUNTER 2023-11-30 09:32 | Outpatient (CLI) | payer BC, SELFPAY ==
--- NOTE | ~2023-11-30 | CT_ITS ---
EXAMINATION: CT chest abdomen pelvis w con DATE: 11/30/2023 10:07 INDICATION: Mantle cell lymphoma TECHNIQUE: Transaxial computed tomographic images of the chest, abdomen, and pelvis were obtained aft er the administration of 100 cc of Omnipaque 350 intravenous contrast. The dose-length product (DLP) was 801.81 mGy-cm. Automated exposure control and iterative reconstruction technique were employed. COMPARISON: 03/06/2023, 02/13/2023 FINDINGS: CHEST CT: A left internal jugular Port-A-Cath ends with its tip in the proximal superior vena cava. There is mo derate emphysema. There is mild dependent atelectasis. No pleural effusion or pneumothorax. There has been interval resolution of the previously described axillary and mediastinal lymphadenopathy. Bilat eral hilar and upper paratracheal lymph nodes are upper limits of normal in size. The heart size is n ormal. There is moderate thoracic spondylosis. There is severe spondylosis with a partially imaged ce rvical spine. ABDOMEN/PELVIS CT: The liver is diffusely low in attenuation when compared with the spleen, consistent with hepatic stea tosis. The spleen, pancreas, and gallbladder are normal. The right adrenal gland is normal. The left adrenal gland remains enlarged but maintains its adreniform shape. There has been interval resolution of retroperitoneal lymphadenopathy. Cysts of the kidneys measure up to 3.3 cm on the right. There is a 5 mm nonobstructing stone of the left kidney. No free intraperitoneal gas or evidence of bowel obs truction. There is calcified atherosclerosis of the aorta and many of the other arteries. Colonic div erticulosis is present without evidence of diverticulitis. The appendix is normal. There is a small u mbilical hernia containing fat. There is severe lumbar spondylosis. IMPRESSION: 1. Treatment response as evidenced by interval resolution of thoracic and abdominal lymphadenopathy. 2. Nonobstructing left nephrolithiasis. 3. Stable enlargement of the left adrenal gland, likely benign. Reviewed, dictated and finalized at location L. 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 Treatment response as evidenced by interval resolution of thoracic and abdom inal lymphadenopathy. 2. Nonobstructing left nephrolithiasis. 3. Stable enlargement of the left adrenal gland, likely benign.
== END 2023-11-30 09:33 | disposition home or self-care (01) ==
PROVIDERS: PCP Nurse Practitioner; Visit Provider Internal Medicine Hematology & Oncology
DX: C83.10 Mantle cell lymphoma, unspecified site (principal); N20.0 Calculus of kidney; D35.02 Benign neoplasm of left adrenal gland
CPT/HCPCS: 71260; 74177; Q9967

== ENCOUNTER 2024-04-08 07:00 | Outpatient (CLI) | payer BC, SELFPAY ==
--- NOTE | ~2024-04-08 | CT_ITS ---
Clinical Indication: Lymphoma CT Scan of the Chest, Abdomen, and Pelvis with Contrast: Technique: Contiguous sections were acquired throughout the chest, abdomen, and pelvis after intraven ous administration of 100 cc of Omnipaque 350. Dose reduction technique was used on this scan by uti lizing automated exposure control and iterative reconstruction technique. The dose-length product (DL P) was 1372.23 mGy-cm. COMPARISON: 11/30/2023 Findings: There is no evidence of any significant mediastinal, hilar or axillary lymphadenopathy. The mediastin al soft tissues appear normal. There is no evidence of pleural or pericardial effusion. Mild emphysema and chronic interstitial changes are similar to prior exam. No suspicious pulmonary no dule seen. The liver, spleen, pancreas, gallbladder, and right adrenal gland are within normal limits. Stable no nobstructing left renal stone and left parapelvic renal cysts. Stable right renal cyst. Stable diffus e enlargement of the left adrenal gland. There are atherosclerotic calcifications of the aorta. No l ymphadenopathy. No bowel obstruction or bowel wall thickening. There is no evidence to suggest acute appendicitis. Urinary bladder is unremarkable. No pelvic mass seen. No ascites. Impression: No pathologic lymphadenopathy. Stable emphysema and chronic interstitial pulmonary changes. Stable small nonobstructing left renal stone. Stable diffuse enlargement of the left adrenal gland. Reviewed, dictated and finalized at location . Impression: No pathologic lymphadenopathy. Stable emphysema and chronic interstitial pulmonary changes. Stable small nonobstructing left renal stone. Stable diffuse enlargement of the left adrenal gland.
[2024-04-08 07:18] LABS: Estimated Glomerular Filt Rate > 60
== END 2024-04-08 07:01 | disposition home or self-care (01) ==
PROVIDERS: PCP Nurse Practitioner; Visit Provider Internal Medicine Hematology & Oncology
DX: C83.10 Mantle cell lymphoma, unspecified site (principal); J43.9 Emphysema, unspecified; N20.0 Calculus of kidney; E27.8 Other specified disorders of adrenal gland
CPT/HCPCS: 71260; 74177; Q9967

== ENCOUNTER 2024-04-19 09:48 | Outpatient (CLI) | payer BC, SELFPAY ==
--- NOTE | 2024-04-19 10:45 | NEURO_ITS ---
Impression: #Non diabetic Complains of numbness of hands. . # Severe bilateral Carpal Tunnel Syndrome. 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 # Abnormal needle/EMG exam,in median and ulnar nerve distribution. Nerve Conduction Studies Anti Sensory Summary Table Stim Site NR Peak (ms) P-T Amp (?V) Site1 Site2 Delta-P (ms) Dist (cm) Xander (m/s) Left Median Anti Sensory (2-3nd Digit) Wrist 8.3 17.8 Wrist 2-3nd Digit 8.3 14.0 17 Wrist 7.8 6.5 Wrist 2-3nd Digit 8.3 14.0 17 Right Median Anti Sensory (2-3nd Digit) Wrist 6.0 19.0 Wrist 2-3nd Digit 6.0 14.0 23 Wrist 6.0 74.6 Wrist 2-3nd Digit 6.0 14.0 23 Left Radial Anti Sensory (Base 1st Digit) Wrist 2.5 12.6 Wrist Base 1st Digit 2.5 0.0 Right Radial Anti Sensory (Base 1st Digit) Wrist 3.1 5.2 Wrist Base 1st Digit 3.1 0.0 Left Ulnar Anti Sensory (5th Digit) Wrist 2.8 31.3 Wrist 5th Digit 2.8 14.0 50 Right Ulnar Anti Sensory (5th Digit) Wrist 2.8 24.8 Wrist 5th Digit 2.8 14.0 50 Motor Summary Table Stim Site NR Onset (ms) O-P Amp (mV) Site1 Site2 Delta-0 (ms) Dist (cm) Xander (m/s) Left Median Motor (Abd Poll Brev) Wrist 8.3 0.8 Elbow Wrist 4.8 32.0 67 Elbow 13.1 0.1 Right Median Motor (Abd Poll Brev) Wrist 7.4 2.1 Elbow Wrist 5.7 30.0 53 Elbow 13.1 2.3 Left Ulnar Motor (Abd Dig Minimi) Wrist 2.9 5.6 A Elbow Wrist 6.1 33.0 54 A Elbow 9.0 4.5 Right Ulnar Motor (Abd Dig Minimi) Wrist 2.8 5.0 A Elbow Wrist 9.1 32.0 35 A Elbow 11.9 3.6 B Elbow Wrist 4.5 21.0 47 B Elbow 7.3 3.8 F Wave Studies NR F-Lat (ms) L-R F-Lat (ms) Left Median (Mrkrs) (Abd Poll Brev) 34.70 1.58 Right Median (Mrkrs) (Abd Poll Brev) 33.12 1.58 Left Ulnar (Mrkrs) (Abd Dig Min) 32.38 0.55 Right Ulnar (Mrkrs) (Abd Dig Min) 31.83 0.55 EMG Side Muscle Nerve Root Ins Act Fibs Amp Dur Recrt Comment Right 1stDorInt Ulnar C8-T1 Nml Nml Nml >12ms +2 Right Ext Indicis Radial (Post Int) C7-8 Nml Nml Nml Nml Nml Right Ext Digitorum Radial (Post Int) C7-8 Nml Nml Nml Nml Nml Right BrachioRad Radial C5-6 Nml Nml Nml Nml Nml Right PronatorTeres Median C6-7 Nml Nml Nml Nml Nml Right Abd Poll Brev Median C8-T1 Nml Nml Nml >12ms +2 Right ABD Dig Min Ulnar C8-T1 Nml Nml Nml >12ms +2 Left 1stDorInt Ulnar C8-T1 Nml Nml Nml Nml Nml Left Ext Indicis Radial (Post Int) C7-8 Nml Nml Nml Nml Nml Left Ext Digitorum Radial (Post Int) C7-8 Nml Nml Nml Nml Nml Left BrachioRad Radial C5-6 Nml Nml Nml Nml Nml Left PronatorTeres Median C6-7 Nml Nml Nml Nml Nml Left Abd Poll Brev Median C8-T1 Nml Nml Nml >12ms +2 Left ABD Dig Min Ulnar C8-T1 Nml Nml Nml Nml Nml MTDD
== END 2024-04-19 09:49 | disposition home or self-care (01) ==
LOC: ANHNEURO 09:50
PROVIDERS: PCP Nurse Practitioner; Visit Provider Nurse Practitioner
DX: G56.03 Carpal tunnel syndrome, bilateral upper limbs (principal); G56.21 Lesion of ulnar nerve, right upper limb
CPT/HCPCS: 95886; 95911

== ENCOUNTER 2024-10-03 07:39 | Outpatient (CLI) | payer BC, SELFPAY ==
--- NOTE | ~2024-10-03 | CT_ITS ---
Clinical Indication: Mental cell lymphoma CT Scan of the Chest, Abdomen, and Pelvis with Contrast: Technique: Contiguous sections were acquired throughout the chest, abdomen, and pelvis after intraven ous administration of 100 cc of Omnipaque 350. Dose reduction technique was used on this scan by uti edying automated exposure control and iterative reconstruction technique. The dose-length product (DL P) was 897.80 mGy-cm. Comparison: 04/08/2024 Findings: There is no evidence of any significant mediastinal, hilar or axillary lymphadenopathy. The mediastin al soft tissues appear normal. There is no evidence of pleural or pericardial effusion. The lungs are clear. No pulmonary nodules or infiltrates are noted. There is mild emphysema/interstit ial change in the upper lobes. The liver, spleen, pancreas, gallbladder, right adrenal gland, and kidneys are within normal limits. Stable diffuse enlargement of the left adrenal gland. There are atherosclerotic calcifications of the aorta. No lymphadenopathy. No bowel obstruction or bowel wall thickening. There is no evidence to suggest acute appendicitis. Urinary bladder is unremarkable. No pelvic mass seen. No ascites. Impression: No pathologic lymphadenopathy. Stable diffuse enlargement of left adrenal gland, possibly representing adrenal hyperplasia. Mild emphysema/interstitial disease in the upper lobes. Reviewed, dictated and finalized at location . 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 Stable diffuse enlargement of left adrenal gland, possibly representing adrenal hyperplasia. Mild emphysema/interstitial disease in the upper lobes.
[2024-10-03 08:04] LABS: Estimated Glomerular Filt Rate > 60
== END 2024-10-03 07:40 | disposition home or self-care (01) ==
PROVIDERS: PCP Nurse Practitioner; Visit Provider Internal Medicine Hematology & Oncology
DX: J98.2 Interstitial emphysema (principal); C83.10 Mantle cell lymphoma, unspecified site
CPT/HCPCS: 71260; 74177; Q9967

== ENCOUNTER 2024-11-15 14:25 | Outpatient (CLI) | payer BC, SELFPAY ==
--- NOTE | 2024-11-15 14:33 | ECG_ITS ---
Test Date: 2024-11-15 14:49:13 Measurements Intervals Olivia Rate: 72 P: 32 TN: 133 QRS: -17 QRSD: 104 T: 4 QT: 365 QTc: 401 Interpretive Statements SINUS RHYTHM POSSIBLE RIGHT VENTRICULAR CONDUCTION DELAY [RSR (QR) IN V1/V2] POSSIBLE LEFT VENTRICULAR HYPERTROPHY [VOLTAGE CRITERIA PLUS LAE OR QRS WIDENING] No previous ECG available for comparison Electronically Signed On 11-17-2024 13:33:42 FIG BAR MACHINE OPERATOR by Micki Horne
== END 2024-11-15 14:26 | disposition home or self-care (01) ==
PROVIDERS: PCP Internal Medicine; Visit Provider Internal Medicine
DX: Z01.818 Encounter for other preprocedural examination (principal)
CPT/HCPCS: 93005

== ENCOUNTER 2025-02-14 14:03 | Outpatient (CLI) | payer BC, SELFPAY ==
--- NOTE | ~2025-02-14 | CT_ITS ---
Clinical Indication: Mantle cell lymphoma CT Scan of the Chest, Abdomen, and Pelvis with Contrast: Technique: Contiguous sections were acquired throughout the chest, abdomen, and pelvis after intraven ous administration of 100 cc of Omnipaque 350. Dose reduction technique was used on this scan by uti lizing automated exposure control and iterative reconstruction technique. The dose-length product (DL P) was 988.66 mGy-cm. Comparison: 10/03/2024 Findings: There is no evidence of any significant mediastinal, hilar or axillary lymphadenopathy. The mediastin al soft tissues appear normal. There is no evidence of pleural or pericardial effusion. The lungs are clear. No pulmonary nodules or infiltrates are noted. There is mild emphysema and/or ch ronic interstitial changes. The liver, spleen, pancreas, gallbladder, right adrenal gland, and right kidney are within normal hernandez its. Stable diffuse low-density enlargement of the left adrenal gland. Stable nonobstructing left derick al stone and probable left parapelvic renal cysts. There are atherosclerotic calcifications of the ao rta. No lymphadenopathy. No bowel obstruction or bowel wall thickening. There is no evidence to suggest acute appendicitis. Urinary bladder is unremarkable. No pelvic mass. No ascites. Impression: No change from prior exam. Stable diffuse low-density enlargement of left adrenal gland. Stable nonobstructing left renal stone and left parapelvic renal cysts. Mild emphysema and/or chronic interstitial change. Reviewed, dictated and finalized at [facility]. Impression: No change from prior exam. Stable diffuse low-density enlargement of left adrenal gland. Stable nonobstructing left renal stone and left parapelvic renal cysts. Mild emphysema and/or chronic interstitial change.
--- OUTSIDE RECORDS SUMMARY | 2025-02-14 16:12 | XMS_ITS | Clinical Summary ---
Author Organization [facility] Address [address] [place] [address] Care Team Providers Care Cdl Flatbed Truck Driver Name Role Phone Dante Ramos MD Primary Care Provider [phone] Source Comments [facility],non-owned Affiliates and Associated Physician Practices is amultiple site organization consisting of ambulatory clinics and hospital sitesin [place], [place], [place] and [place]. This disclosure is being madepursuant to the Care Everywhere program and may not contain all information available regarding this patient. Last updated 18.[facility] Social History Tobacco Use Types Packs/Day Years Used Date Smoking Tobacco: Never Assessed Sex and Gender Information Value Date Recorded Sex Assigned at Not on file Legal Sex Male 4:04 AM CDT Gender Identity Not on file Sexual Orientation Not on file Plan of Treatment Health Maintenance Due Date Last Done Comments COLOGUARD (AGES 45-75) - COL ON CA SCREENING 1953 COLON MONITORING 1953 COLONOSCOPY - COLON CA SCREENING 1953 CT COLONOGRAPHY - COLON CA SCREENING 1953 Colorectal Cancer Screening 1953 FIT - COLON CA SCREENING 1953 FLEX SIG - COLON CA SCREENING 1953 LIPID TESTING 1953 HEPATITIS C SCREENING 12/18/1971 DTAP/TDAP/TD VACCINES (1 - Tdap) 1972 PNEUMOCOCCAL VACCINE 50+ (1 of 1 - PCV) 2003 ZOSTER VACCINE (1 of 2) 2003 COVID-19 VACCINE ( - 2023-2 5 season) 2024 DEPRESSION SCREENING 10/26/2024 INFLUENZA VACCINE (Season Ended) 2025 Respiratory Syncytial Virus (RSV) Vaccine Pt: or over 60 yrs (1 - 1-dose 75+ series) 2028 HEPATITIS B VACCINE Aged Out No longe r eligible based on patient's age to complete this topic HIB VACCINE Aged Out No longer eligi ble based on patient's age to complete this topic HPV VACCINE Aged Out No longer eligi ble based on patient's age to complete this topic MENINGOCOCCAL (Group B) VACC INE SHARED DECISION-MAKING Aged Out No longer eligibl e based on patient's age to complete this topic MENINGOCOCCAL GROUPS A/C/Y/W VACCINE Aged Out No longer eligible b ased on patient's age to complete this topic Insurance Member Subscriber Plan / Payer (Ef fective 2005-Present) Name:Tristan Jenkins Relation to Subscriber:Self Name:TRISTAN JENKINS Payer ID:[id number] ([facility]) Type:PPO Address: [place] [phone] [facility] Member Subscriber Plan / Payer (Ef fective 2005-Present) Name:Tristan Jenkins Relation to Subscriber:Self Name:TRISTAN JENKINS Payer ID:[id number] ([facility]) Type:PPO Address: [place] [phone] [facility] Care Teams Cdl Flatbed Truck Driver Relationship Specialty Start Date End Date Dante Ramos MD [address] [facility] [address] [place] [address] PCP - General 07/21/19
--- OUTSIDE RECORDS SUMMARY | 2025-02-14 16:12 | XMS_ITS ---
Author Name Will Ochoa Address [address] [place] [address] Phone [phone] Organization [employer] Address [address] [place] [address] Phone [phone] Care Team Providers Care Ivory Polisher Name Role Phone Wlil Ochoa Unavailable [phone] Functional Status No Results Mental Status No Results Allergies and Intolerances Name Onset Date Reaction Severity No Known Allergies (Allergy) ThuJan 04 08:47:00 EDT 2024 Encounters Program Name Primary Diagnosis Admission Date/Time Dis charge Date/Time Home Care ThuDec 04 19:00 :00 EST 2024Dec 23 18:59:59 2024 Medications Medication Directions Start Date End Date [place] 10 mg-325 mg tablet 1-2 tab TABLET Oral PRN Every 6 Hours PRN PAIN, NOT TO EXCEED 6 TABS/ 24 HR PERIODRX [id number] FILLED AT [facility] ThuDec 05 01:00:00 2024Dec 23 01:00:00 EST 2024 aspirin 325 mg tablet,delayed release 1 tablet TABLET, DELAYED RELEASE (ENTERIC COATED) Oral PRN Every 12 Hours for 14 Days Indication: For Blood clot prevention- 2 times a day (12 hrs apart) for 2 wks then decrease to once a day for 2 more weeks then stop. May resume home dose of 81mg after stops the 325mg tab ThuDec 05 01:00:00 2024Dec 19 00:59:00 EST 2024 Excedrin Extra Strength 250 mg-250 mg-65 mg tablet 2 tablets TABLET Oral Every 1 Day Pt cannot resume this med until full course of aspirin is complete ThuDec 05 01:00:00 2024Dec 23 01:00:00 EST 2024 amLODIPine 5 mg tablet 1 tablet TABLET O ral Every 1 Day ThuDec 05 01:00:00 EST 2024Dec 23 01:00:00 EST 2024 meloxicam 15 mg tablet 1 tablet TABLET O ral Every 1 Day Pt not to resume until follow up with Dr Thompson ThuDec 05 01:00:00 EST 2024Dec 23 01:00:00 EST 2024 metoprolol tartrate 50 mg tablet 1 tablet TABLET Oral Every 1 Day ThuDec 05:00:00 2024b 01:00:00 EST 2024 multivitamin tablet 1 tablet TABLET Oral Every 1 Day ThuDec 05 01:00:00 EST 2024b 01:00:00 EST 2024 oxyCODONE-acetaminophen 5 mg-325 mg tablet 1 tablet TABLET Oral PRN Every 4 Hours Indication: as needed for pain ThuDec 05 01:00:00 2024Dec 23 01:00:00 EST 2024 Problems Active Concerns * Aftercare following joint replacement surgery* Code: * Start Date: ThuNov 29 00:00:00 EST 2024 * End Date: * Text: * intermediate manager (current) use of anticoagulants* Code: * Start Date: ThuDec 05 00:00:00 EST 2024 * End Date: * Text: * Personal history of non-Hodgkin lymphomas* Code: * Start Date: ThuDec 05 00:00:00 2024 * End Date: * Text: * MCFP (current) use of aspirin* Code: * Start Date: ThuDec 05 00:00:00 EST 2024 * End Date: * Text: * Presence of left artificial knee joint* Code: * Start Date: ThuDec 05 00:00:00 EST 2024 * End Date: * Text: * Dependence on other enabling machines and devices* Code: * Start Date: ThuDec 05 00:00:00 EST 2024 * End Date: * Text: * Other fci (current) drug therapy* Code: * Start Date: ThuDec 05 00:00:00 EST 2024 * End Date: * Text: * Nicotine dependence, cigarettes, uncomplicated* Code: * Start Date: ThuDec 05 00:00:00 EST 2024 * End Date: * Text: * Emphysema, unspecified* Code: * Start Date: ThuDec 05 00:00:00 EST 2024 * End Date: * Text: * Essential (primary) hypertension* Code: * Start Date: ThuDec 05 00:00:00 2024 * End Date: * Text: * Presence of right artificial knee joint* Code: * Start Date: ThuDec 05 00:00:00 2024 * End Date: * Text: Reason for Referral
--- OUTSIDE RECORDS SUMMARY | 2025-02-14 16:12 | XMS_ITS | Clinical Summary ---
Author Organization [facility] Shanehermelindo ann Robb Address [address] [place] [address] Care Team Providers Care Locum Tenens Hospitalist Name Role Phone Edmar Cervantes Primary Care Provider [phone] Allergies No known active allergies Medications amLODIPine (NORVASC) 5 mg tablet Take 5 mg by mouth daily. 10/03/2024 Active metoprolol tartrate (LOPRESSOR) 50 mg tablet Take 1 Tablet by mouth daily. 10/04/2024 Active meloxicam (MOBIC) 15 mg tablet Take 1 Tablet by mouth daily. 10/01/2024 Active oxyCODONE-acetam inophen (PERCOCET) 10-325 mg Tablet Take 1 Tablet by mouth every 8 hours as needed for Pain. 11/29/2024 Active Active Problems No known active problems Encounters Date Type Department Care Team Description 02/07/2025 External Device Data STL ABSTRACTION Provider, Abstract 02/06/2025 10:15 AM CDT Office Visit [facility] Oncology and Hematology - [address] [place] [address] Alex Garcia MD Mantle cell lymphoma, unspecified body region (CMS/HCC) 02/06/2025 Orders Only [facility] - [address] [place] [address] Alex Garcia MD 01/31/2025 External Device Data STL ABSTRACTION Provider, Abstract 01/23/2025 Orders Only [facility]ology - [address] [place] [address] Alex Garcia MD Mantle cell lymphoma, unspecified body region (CMS/HCC) 01/11/2025 External Device Data STL ABSTRACTION Provider, Abstract 01/09/2025 Orders Only [facility]ematology - [address] [place] [address] Alex Garcia MD Mantle cell lymphoma, unspecified body region ([facility]/HCC) 01/02/2025 External Device Data STL ABSTRACTION Provider, Abstract 12/26/2024 Orders Only [facility]ology - [address] [place] [address] Alex Garcia MD Mantle cell lymphoma, unspecified body region ([facility]/HCC) 12/20/2024 External Device Data STL ABSTRACTION Provider, Abstract 12/12/2024 9:15 AM SNOW SHOVELER Office Visit [facility] Hematology - [address] [place] [address] Alex Garcia MD Mantle cell lymphoma, unspecified body region ([facility]/HCC) 11/28/2024 Orders Only [facility]ematology - [address] [place] [address] Alex Garcia MD Mantle cell lymphoma, unspecified body region ([facility]/HCC) 11/17/2024 External Device Data STL ABSTRACTION Provider, Abstract from Last 3 Months Family History Relation Name Status Comments Daughter 1 Alive Daughter 2 Alive Father Mother Sister Alive Son Alive Social History Tobacco Use Types Packs/Day Years Used Date Smoking Tobacco: Every Day Cigarettes Tobacco Cessation:Ready to Q uit: Not Asked; Counseling Given: Not Answered Alcohol Use Standard Drinks/Week Comments Yes 0 (1 standard drink = 0.6 oz pur e alcohol) occasional Sex and Gender Information Value Date Recorded Sex Assigned at Not on file Legal Sex Male 9:51 AM CDT Gender Identity Not on file Sexual Orientation Not on file Last Filed Vital Signs Vital Sign Reading Time Taken Comments Blood Pressure 138/71 02/06/2025 10:25 AM CDT Pulse 80 02/06/2025 10:23 AM CDT Temperature 36.3 C (97.3 F) 02/06/2025 10:23 AM CDT Respiratory Rate 15 02/06/2025 10:23 AM CDT Oxygen Saturation 93% 02/06/2025 10:23 AM CDT Inhaled Oxygen Concentration - - Weight 93.4 kg (206 lb) 02/06/2025 10:23 AM CDT Height - - Body Mass Index - - Plan of Treatment Upcoming Encounters Date Type Department Care Team (Late st Contact Info) Description 04/03/2025 9:00 AM CDT Office Visit [facility] H[facility]ology [facility] [address] [facility] [address] [place] [address] Alex Garcia MD [address] [place] [address] Health Maintenance Due Date Last Done Comments DTAP/TDAP/TD VACCINES (1 - Tdap) 1972 PNEUMOCOCCAL VACCINE 50+ YEARS (1 of 2 - PCV) 12/22/18 73 COLORECTAL SCREENING 1998 Colorectal Cancer Screening 1998 FIT-DNA Q 3 years 1998 FIT/FOBT Q 1 year 1998 Flex Sig/CT Colonography Q 5 years 1998 ZOSTER VACCINE (1 of 2) 2003 RSV VACCINE (60+ or ) (1 - Risk 60-74 years 1-dose series) 2013 Abdominal Aortic Aneurysm (AAA) Screening 2018 INFLUENZA VACCINE (#1) 2024 Preventative Visit- Commercial 10/26/2024 Procedures Procedure Name Priority Date/Time Associated Diagnosis Comments CBC MIXED CELL DIFFERENTIAL Routine 02/06/2025 3:13 PM CDT BASIC METABOLIC PANEL Routine 02/06/2025 3:10 PM CDT from Last 3 Months Results * CBC MIXED CELL DIFFERENTIAL (02/06/2025 3:13 PM CDT) Blood us Alex Garcai MD HEMATOLOGY ORDERABLES Final Res ult * BASIC METABOLIC PANEL (02/06/2025 3:10 PM CDT) Blood Alex Garcia MD CHEMISTRY ORDERABLES Final Resu lt from Last 3 Months Insurance [facility] BLUE ACCESS/TRUE BLUE PPO Care Teams Locum Tenens Hospitalist Relationship Specialty Start Date End Date Edmar Cervantes DO [address] [place] [address] PCP - General Internal Medicine 08/15/24
--- OUTSIDE RECORDS SUMMARY | 2025-02-14 16:12 | XMS_ITS | Encounter Summary ---
Author Organization [facility] Address [address] [place] [address] Care Team Providers Care Molasses Feed Mixer Name Role Phone Dante Ramos MD Primary Care Provider [phone] Encounter Details Date Type Department Care Team (Late st Contact Info) Description 04/10/2023 Lab Requisition [facility] - Pathology Lab [address] [place] [address] Charles Cadet MD [facility] [address] [phone] Localized enlarged lymph nodes Social History Tobacco Use Types Packs/Day Years Used Date Smoking Tobacco: Never Assessed Sex and Gender Information Value Date Recorded Sex Assigned at Not on file Legal Sex Male 4:04 AM CDT Gender Identity Not on file Sexual Orientation Not on file documented as of this encounter Plan of Treatment Not on file documented as of this encounter Procedures Procedure Name Priority Date/Time Associated Diagnosis Comments FLOW CYTOMETRY TISSUE PANEL Routine 04/10/2023 9:55 AM CDT Localized enlarged lymph nodes documented in this encounter Results * FLOW CYTOMETRY TISSUE PANEL (04/10/2023 9:55 AM CDT) Case Report Flow Cytometry Case: [id number] Authorizing Provider: Charles Cadet MD Collected: 04/10/2023 09:55 AM Ordering Location: [facility] Care Pathology Lab Received: 04/10/2023 04:17 PM Pathologist: Jin Morton MD Specimen: Lymph Node, Left Axilla Lymph Node 04/13/2023 10:49 AM CDT [facility] Final Diagnosis Axillary lymph node, left, flow cytometric immunophenotypic analysis: - CD5-positive mature B-cell lymphoma (52.6% of total flow events). - See interpretation. 04/13/2023 10:49 AM [facility] Flow Cytometry Interpretation The lymph node has a viability of 86%. Essentially all the cells are within the lymphocyte gate (100%). Within the lymphocyte gate, there is a monotypic (kappa-restricted) B-cell population identified which exhibits aberrant co-expression of CD5. These cells express CD19 and CD20, lack expression of CD10, and CD23, and comprise 52.6% of total events. There is no expanded T-cell population seen with T-cells at 27% (CD4: CD8 ratio 1:1), and no significant blast population identified. A smear prepared from the flow cytometry specimen is reviewed for quality assurance clerk purposes. Correlation with clinical findings, tissue morphology and additional ancillary studies is required. 04/13/2023 10:49 AM [facility] Flow Cytometry Results Differential Result Comment Flow Cell Count /uL 3,600 Total Viability % 86.0 Lymphocytes % 100 Dim CD45 Region % 0 Monocytes % 0 Granulocytes % 0 04/13/2023 10:49 AM [facility] Reason for test Localized enlarged lymph nodes 785.6 04/13/2023 10:49 AM [facility] Client Specimen ID # [id number] 04/13/2023 10:49 AM [facility] Number of markers 16 were performed. A-2 Flow CD10 A-4 Flow CD20 A-5 Flow CD23 A-10 Flow CD2 A-11 Flow CD3 A-12 Flow CD4 A-16 Flow CD1a A-3 Flow CD19 A-6 Flow CD34 A-7 Flow CD45 A-13 Flow CD5 A-14 Flow CD7 A-15 Flow CD8 A-17 Flow CD30 A-8 [place]+CD19+ A-9 Lambda+CD19+ 04/13/2023 10:49 AM [facility] Pathologist Location at [facility] 04/13/2023 10:49 AM [facility] Disclaimer Test performed at [facility], [address] [place] [address], [id number]. *The established laboratory minimum viability is 70%. Values below the minimum may result in the failure to find an abnormal population of cells. This test was developed and its performance characteristics determined by the Flow Cytometry Laboratory. It has not been cleared by the [place] Food and Drug Administration (FDA). The FDA has determined that such clearance or approval is not necessary. This test is used for clinical purposes. It should not be regarded as investigational or for research. This laboratory is regulated under the Clinical Laboratory Improvement Amendments of 1998 (CLIA) as a qualified to perform high complexity clinical testing. 04/13/2023 10:49 AM CDT [facility] Embedded Images 10:49 AM CDT [facility] Pathology/Cytolo gy ENTIRE LYMPH NODE / Unknown 04/10/2023 9:55 AM CDT 04/10/2023 4:17 PM CDT Charles Cadet MD LAB - PATHOLOGY/CYTOLOGY ORDERAB LES Final Result Performing Organization Address City/[facility] Co de Phone Number [facility] [address] [phone] documented in this encounter Visit Diagnoses Diagnosis Localized enlarged lymph nodes Enlargement of lymph nodes documented in this encounter Care Teams Molasses Feed Mixer Relationship Specialty Start Date End Date Dante Ramos MD [address] [facility] [address] [place] [address] PCP - General 07/21/19 documented as of this encounter
--- OUTSIDE RECORDS SUMMARY | 2025-02-14 16:12 | XMS_ITS | Encounter Summary ---
Author Organization [facility] Address [address] [place] [address] Care Team Providers Care Basket Hand Braider Name Role Phone Dante Ramos MD Primary Care Provider [phone] Encounter Details Date Type Department Care Team (Late st Contact Info) Description 04/21/2023 Lab Requisition [facility] - Pathology Lab [address] [place] [address] Charles Cadet MD [facility] [address] [phone] Illness, unspecified Social History Tobacco Use Types Packs/Day Years [...] Procedure Name Priority Date/Time Associated Diagnosis Comments PATHOLOGY TISSUE Routine 04/10/2023 9:55 AM CDT Illness, unspecified documented in this encounter Results * PATHOLOGY TISSUE (04/10/2023 9:55 AM CDT) Case Report Surgical Pathology Report Case: [id number] Authorizing Provider: Charles Cadet MD Collected: 04/10/2023 09:55 AM Ordering Location: [facility] Pathology Lab Received: 04/21/2023 12:03 PM Pathologist: Mike Renee MD Specimen: Lymph Node Biopsy, axillary lymph node 04/23/2023 9:46 AM CDT [facility] Final Diagnosis Axillary lymph node, left, fine needle biopsy: - CD5 positive mature B-cell lymphoma, kappa light chain restricted and with cyclin D1 expression most consistent with Mantle Cell Lymphoma. - Correlation with clinical, lymph node excsion biopsy, cytogenetic and molecular studies advised. - See interpretation. 04/23/2023 9:46 AM [facility] Microscopic Description and Comment H&E stain of tissue section shows a diffuse infiltration vaguely nodular in some areas, of monomorphous small to mid size lymphocytes. Cells have irregular contours and no mitosis, no nucleoli are seen. Immunohistochemical stains performed with adequate controls, show that the cells within the atypical infiltrate are B-cells by CD20, PAX5, co-express CD5, cyclin D1 and are monotypic for surface kappa light chain. These cells are negative for CD23. The proliferation index by MIB-1 is ~30-40%. CD3 highlght background of T-cells. CD21 and CD23 highlight some areas of follicular dendritic meshwork. SOX11 performed non contributive due to tissue section drop-out. 04/23/2023 9:46 AM [facility] Clinical History 04/23/2023 9:46 AM [facility] Materials Received Received are 3 slide(s), and 1 block labeled [id number] along with a copy of the outside pathology report. [place] [address]. All original materials are returned to the referring institution, along with a copy of our final report. 04/23/2023 9:46 AM [facility] Pathologist Location at [facility] 04/23/2023 9:46 AM [facility] Disclaimer The performance characteristics of all immunohistochemical and indirect immunofluorescence stains (if any) cited in this report were determined by the Histopathology Laboratory of [facility]. Some of these tests were developed by our own laboratory and have not been cleared or approved by the US Food and Drug Administration. The FDA does not require this test to go through premarket FDA review. These tests are used for clinical purposes. They should not be regarded as investigational or for research. This laboratory is certified under the Clinical Laboratory Improvement Amendments (CLIA) as qualified to perform high complexity clinical laboratory testing. This case has been personally reviewed and interpreted by the attending (teaching) pathologist. 04/23/2023 9:46 AM CDT [facility] Embedded Images 04/23/2023 9:46 AM CDT [facility] Pathology/Cytolo gy BIOPSY OF LYMPH NODE / Unknown 04/10/2023 9:55 AM CDT 04/21/2023 12:03 PM CDT Charles Cadet MD LAB - PATHOLOGY/CYTOLOGY ORDERAB LES Final Result [facility] [address] [phone] documented in this encounter Visit Diagnoses Diagnosis Illness, unspecified documented in this encounter Care Teams Basket Hand Braider Relationship Specialty Start Date End Date Dante Ramos MD [address] [facility] [address] [place] [address] PCP - General 07/21/19 documented as of this encounter
--- OUTSIDE RECORDS SUMMARY | 2025-02-14 16:12 | XMS_ITS | Referral Summary ---
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 Pulse 91 08/01/2024 4:16 PM CDT Temperature 36.8 C (98.3 F) 08/01/2024 4:16 PM CDT Respiratory Rate 20 08/01/2024 4:16 PM CDT Oxygen Saturation 97% 08/01/2024 4:1 6 PM CDT Inhaled Oxygen Concentration - - Weight - - Height - - Body Mass Index - - Plan of Treatment Not on [place] [address] [facility] Care Teams Clinical Research Administrator Relationship Specialty Start Date End Date Roland Cisse NP [address] [place] [address] PCP - General Nurse Practitioner 08/01/24
--- OUTSIDE RECORDS SUMMARY | 2025-02-14 16:12 | XMS_ITS | Clinical Summary ---
Author Organization [facility] [address] Address [address] [place] [address] Care Team Providers Care Plant Reliability Engineer Name Role Phone Roland Cisse NP Primary Care Provider [phone] Allergies No known active allergies Medications No known medications Active Problems No known active problems Social History Tobacco Use Types Packs/Day Years Used Date Smoking Tobacco: Never Assessed Personal Safety Answer Date Recorded Getting School Help Needed Not on file 08/01 Sex and Gender Information Value Date Recorded Sex Assigned at Not on file 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 Gender Identity Not on file Sexual Orientation [...] Mass Index - - Plan of Treatment Health Maintenance Due Date Last Done Comments Colon Cancer Screening-Colonoscopy 1955 Depression Screening 1955 Fall Risk Assessment 1955 Hepatitis C Screening 1955 Hepatitis B Screening 1971 Abdominal Aortic Aneurysm (A AA) Screen 2018 Well Visit 65+ 2018 Covid-19 Vaccine (5 - Pfizer risk season) 2025 07/08/2024, 07/20/2021, 01/03/2021, Additional history exists DTaP/Tdap/Td Vaccine (2 - Td or Tdap) 12/20/2032 12/20/2022 Zoster Vaccine Completed 04/18/2022, 11/15/2021 Pneumococcal vaccine 65+ Completed 08/14/2023 Influenza Vaccine Completed 07/08/2024, , 07/20/2021, Additional history exists Insurance [facility] Care Teams Plant Reliability Engineer Relationship Specialty Start Date End Date Roland Cisse NP [address] [place] [address] PCP - General Nurse Practitioner 08/01/24
== END 2025-02-14 14:04 | disposition home or self-care (01) ==
PROVIDERS: PCP Internal Medicine; Visit Provider Internal Medicine Hematology & Oncology
DX: D35.02 Benign neoplasm of left adrenal gland (principal); N20.0 Calculus of kidney; N28.1 Cyst of kidney, acquired; C83.10 Mantle cell lymphoma, unspecified site
CPT/HCPCS: 71260; 74177; Q9967

== ENCOUNTER 2025-07-03 08:06 | Emergency (ER) | payer BC, SELFPAY ==
[2025-07-03 08:16] VITALS: BP 155/84; PULSE 79; RESP 20; TEMP 36.7; O2SAT 97
--- OUTSIDE RECORDS SUMMARY | 2025-07-03 08:21 | XMS_ITS ---
Author Name Auto Generated, Auto Generated Organization [employer] [facility] Address [address] [place] [address] Care Team Providers Care Lift Team Technician Name Role Phone Will Ochoa Certifying Physician - Home [facility] [phone] Leonid Myers Unavailable Unavailable Smith Hennessy Unavailable Unavailable Allergies and Intolerances Name Onset Reaction Severity No Known Allergies 2025-01-04 12:47:00 Care Team Name Role NPI Start Date [facility] [id number] 2024-08-25 00:00:00 Leonid Myers Care Lift Team Technician Smith Hennessy Care Lift Team Technician Encounters Admissions Program Name Primary Diagnosis Admission Date Discharg e Date Home Care 2024-12-05 00:00:00 23:59:59 Visits Service Program Provider Start End Home Care Leonid Myers 2024-12-05 17:00:00 20-12-09 18:30:00 Home Care Smith Hennessy 2024-12-07 16:55:00 17:38:00 Home Care Smith Hennessy 2024-12-09 17:05:00 2 17:55:00 Home Care Smith Hennessy 2024-12-13 19:10:00 19:55:00 Home Care Smith Hennessy 2024-12-15 19:30:00 2 19:45:00 Home Care Smith Hennessy 2024-12-16 16:30:00 2 16:45:00 Home Care Smith Hennessy 2024-12-19 20:10:00 2 20:55:00 Home Care Leonid Myers 2024-12-23 16:00:00 20 20-12-27 17:00:00 Medications Medication Instructions Start Date End Date aspirin 325 mg tablet,delayed release 1 tablet TABLET, DELAYED RELEASE (ENTERIC COATED) Oral PRN Every 12 Hours for 14 Days Indication: For Blood clot prevention- 2 times a day (12 hrs apart) for 2 wks then decrease to once a day for 2 more weeks then stop. May resume home dose of 81mg after stops the 325mg tab 2024-12-05 06:00:00 2024-12-19 05:59:00 Excedrin Extra Strength 250 mg-250 mg-65 mg tablet 2 tablets TABLET Oral Every 1 Day Pt cannot resume this med until full course of aspirin is complete 2024-12-05 06:00:00 2024-12-23 06:00:00 amLODIPine 5 mg tablet 1 tablet TABLET O ral Every 1 Day 2024-12-05 06:00:00 2024-12-23 06:00:00 meloxicam 15 mg tablet 1 tablet TABLET O ral Every 1 Day Pt not to resume until follow up with Dr Thompson 2024-12-05 06:00:00 2024-12-23 06:00:00 metoprolol tartrate 50 mg tablet 1 tablet TABLET Oral Every 1 Day 2024-12-05 06:00:00 2024-12-23 06:00:00 multivitamin tablet 1 tablet TABLET Oral Every 1 Day 2024-12-05 06:00:00 2024-12-23 06:00:00 oxyCODONE-acetaminophen 5 mg-325 mg tablet 1 tablet TABLET Oral PRN Every 4 Hours Indication: as needed for pain 2024-12-05 06:00:00 2024-12-23 06:00:00 [place] 10 mg-325 mg tablet 1-2 tab TABLET Oral PRN Every 6 Hours PRN PAIN, NOT TO EXCEED 6 TABS/ 24 HR PERIODRX [id number] [facility] 2024-12-05 06:00:00 2024-12-23 06:00:00 Problems Active Concerns Problem Code Start Date End Date Text Aftercare following joint replacement surgery Aftercare following joint replacement surgery 2024-11-29 00:00:00 FPC (current) use of anticoagulants FPC (current) use of anticoagulants 2024-12-05 00:00:00 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 2024-12-05 00:00:00 remote computer terminal operator (current) use of aspirin remote computer terminal operator (current) use of aspirin 2024-12-05 00:00:00 Presence of left artificial knee joint Presence of left artificial knee joint 2024-12-05 00:00:00 Dependence on other enabling machines and devices Dependence on other enabling machines and devices 2024-12-05 00:00:00 Other senior care (current) drug therapy Other senior care (current) drug therapy 2024-12-05 00:00:00 Nicotine dependence, cigarettes, uncomplicated Nicotine dependence, cigarettes, uncomplicated 2024-12-05 00:00:00 Emphysema, unspecified Emphysema, unspecified 20-12-09 00:00:00 Essential (primary) hypertension Essential (primary) hypertension 2024-12-05 00:00:00 Presence of right artificial knee joint Presence of right artificial knee joint 2024-12-05 00:00:00 Social History Observation Description Date Sex Male 1955 00:00 :00 Sex Male
--- OUTSIDE RECORDS SUMMARY | 2025-07-03 08:22 | XMS_ITS | Clinical Summary ---
Author Organization 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 Gender Identity Not on file Sexual Orientation [...] 2018 Well Visit 65+ 2018 Covid-19 Vaccine (2023-2 5 season) 2025 07/08/2024, 07/20/2021, 01/03/2021, Additional history exists Influenza Vaccine (#1) 2025 4, 07/30/2023, 07/20/2021, Additional history exists DTaP/Tdap/Td Vaccine (2 - Td or Tdap) 12/20/2032 12/20/2022 Zoster Vaccine Completed 04/18/2022, 11/15/2021 Pneumococcal vaccine 65+ Completed 08/14/2023 Insurance [facility] Care Teams Business Process Specialist Relationship Specialty Start Date End Date Roland Cisse NP [address] [place] [address] PCP - General Nurse Practitioner 08/01/24
--- OUTSIDE RECORDS SUMMARY | 2025-07-03 08:22 | XMS_ITS | Encounter Summary ---
Author Organization [facility] Address [address] [place] [place] [address] Care Team Providers Care Residential Real Estate Assistant Name Role Phone Dante Ramos MD Primary Care Provider [phone] Encounter Details Date Type Department Care Team (Late st Contact Info) Description 04/21/2023 Lab Requisition [facility] - Pathology Lab [address] [place] [address] Charles Cadet MD [facility] [address] [phone] Illness, unspecified Social History Tobacco Use Types [...] CDT) Case Report Surgical Pathology Report Case: [id number] Authorizing Provider: Charles Cadet MD Collected: 04/10/2023 09:55 AM Ordering Location: [facility] Pathology Lab Received: 04/21/2023 12:03 [...] advised. - See interpretation. 04/23/2023 9:46 AM [facility] PATHOLOGY LAB at 0946 CDT Microscopic Description and Comment H&E stain of [...] to tissue section drop-out. 04/23/2023 9:46 AM [facility] Clinical History 04/23/2023 9:46 AM [facility] Materials Received Received are 3 slide(s), and 1 block labeled [id number] along with a copy of the outside pathology report. [place] [address]. All original materials are returned to the referring institution, along with a copy of our final report. 04/23/2023 9:46 AM [facility] Pathologist Location at [facility] 04/23/2023 9:46 AM [facility] Disclaimer The performance characteristics of all immunohistochemical and indirect immunofluorescence stains (if any) cited in this report were determined by the Histopathology Laboratory of [facility]. Some of these tests were developed by [...] attending (teaching) pathologist. 04/23/2023 9:46 AM CDT [facility] Embedded Images 04/23/2023 9:46 AM CDT [facility] Pathology/Cytolo gy BIOPSY OF LYMPH NODE / Unknown 04/10/2023 9:55 AM CDT 04/21/2023 12:03 PM CDT Charles Cadet MD LAB - PATHOLOGY/CYTOLOGY ORDERAB LES Final Result [facility] [address] [phone] documented in this encounter Visit Diagnoses Diagnosis Illness, unspecified documented in this encounter Care Teams Residential Real Estate Assistant Relationship Specialty Start Date End Date Dante Ramos MD [address] [facility] [address] [place] [address] PCP - General 07/21/19 documented as of this encounter
--- OUTSIDE RECORDS SUMMARY | 2025-07-03 08:22 | XMS_ITS | Clinical Summary ---
Author Organization [facility] Address [address] [facility] [place] [address] Care Team Providers Care Machine Splitter Name Role Phone Dante Ramos MD Primary Care Provider [phone] Source Comments [facility],non-owned Affiliates and Associated Physician Practices is amultiple site organization consisting of ambulatory clinics and hospital sitesin [place], [place], [place] and [place]. This disclosure is being madepursuant to the Care Everywhere program and may not contain all information available regarding this patient. Last updated 18.[facility] [employer] Social History Tobacco Use Types Packs/Day Years [...] season) 2024 DEPRESSION SCREENING 10/26/2024 INFLUENZA VACCINE (#1) 2025 Respiratory Syncytial Virus (RSV) Vaccine Pt: [...] Relation to Subscriber:Self Name:TRISTAN JENKINS Payer ID:[id number] ([employer]) Type:PPO Address: [place] [phone] [facility] Member Subscriber Plan / Payer (Ef fective 2005-Present) Name:Tristan Jenkins Relation to Subscriber:Self Name:TRISTAN JENKINS Payer ID:[id number] ([employer]) Type:PPO Address: [place] [phone] [facility] Care Teams Machine Splitter Relationship Specialty Start Date End Date Dante Ramos MD [address] [facility] [address] [place] [address] PCP - General 07/21/19
--- OUTSIDE RECORDS SUMMARY | 2025-07-03 08:22 | XMS_ITS | Clinical Summary ---
Author Organization [facility] [address] Address [address] [place] [address] Care Team Providers Care Automobile Body Customizer Name Role Phone Edmar Cervantes Primary Care Provider [phone] Allergies No known active allergies Medications amLODIPine (NORVASC) 5 mg tablet Take 5 mg by mouth daily. 10/03/2024 Active metoprolol tartrate (LOPRESSOR) 50 mg tablet Take 1 Tablet by mouth daily. 10/04/2024 Active meloxicam (MOBIC) 15 mg tablet Take 1 Tablet by mouth daily. 10/01/2024 Active Active Problems No known active problems Encounters Date Type Department Care Team Description 06/27/2025 External Device Data ST[facility] ABSTRACTION Provider, Abstract 06/13/2025 External Device Data ST[facility] ABSTRACTION Provider, Abstract 06/12/2025 Orders Only [facility] Oncology and Hematology - [address] [place] [address] Alex Garcia MD Mantle cell lymphoma, unspecified body region (CMS/HCC) 05/29/2025 8:30 AM CDT Office Visit [facility] Oncology and Hematology - [place] [address] [place] [address] Alex Garcia MD Mantle cell lymphoma, unspecified body region (CMS/HCC) 05/29/2025 Orders Only [facility] Oncology and Hematology - [address] [place] [phone] Alex Garcia MD 05/25/2025 Orders Only [facility] Oncology and Hematology - [address] [place] [address] Alex Garcia MD Need for hepatitis B screening test (Primary Dx) 05/15/2025 Orders Only [facility] Oncology and Hematology [facility] [address] [place] [address] Alex Garcia MD Mantle cell lymphoma, unspecified body region (CMS/HCC) 05/01/2025 Orders Only [facility] Oncology and Hematology [facility] [address] [place] [phone] Alex Garcia MD Mantle cell lymphoma, unspecified body region (CMS/HCC) 04/17/2025 Orders Only [facility] Oncology and Hematology [facility] [address] [place] [phone] Alex Garcia MD Mantle cell lymphoma, unspecified body region (CMS/HCC) 04/11/2025 External Device Data STL ABSTRACTION Provider, Abstract 04/03/2025 9:00 AM CDT Office Visit [facility] Oncology [facility] Hematology [place] [address] [place] [phone] Alex Garcia MD Mantle cell lymphoma, unspecified body region (CMS/HCC) from Last 3 Months Family History Relation Name Status Comments Daughter 1 Alive Daughter 2 Alive Father Mother Sister Alive Son Alive Social History Tobacco Use Types Packs/Day Years Used Date Smoking Tobacco: Every Day Cigarettes Alcohol Use Standard Drinks/Week Comments Yes 0 (1 standard drink = 0.6 oz pur e alcohol) occasional Sex and Gender Information Value Date Recorded Sex Assigned at Not on file Legal Sex Male 9:51 AM CDT Gender Identity Not on file Sexual Orientation Not on file Last Filed Vital Signs Vital Sign Reading Time Taken Comments Blood Pressure 138/80 05/29/2025 8:39 AM CDT Pulse 77 05/29/2025 8:36 AM CDT Temperature 36.2 C (97.2 F) 05/29/2025 8:36 AM CDT Respiratory Rate 15 05/29/2025 8:36 AM CDT Oxygen Saturation 95% 05/29/2025 8:36 AM CDT Inhaled Oxygen Concentration - - Weight 96.2 kg (212 lb) 05/29/2025 8:36 AM CDT Height - - Body Mass Index - - Plan of Treatment Upcoming Encounters Date Type Department Care Team (Late st Contact Info) Description 08/07/2025 9:45 AM CDT Office Visit [facility] Oncology and Hematology [facility] [address] [facility] [address] [place] [address] Alex Garcia MD [address] [facility] [address] [place] [address] Health Maintenance Due Date Last [...] Aneurysm (AAA) Screening 2018 INFLUENZA VACCINE (#1) 2025 Procedures Procedure Name Priority Date/Time Associated Diagnosis Comments BASIC METABOLIC PANEL Routine 05/29/2025 12:33 PM CDT CBC WITH AUTODIFFERENTIAL Routine 2024 11:49 AM CDT from Last 3 Months Results * BASIC METABOLIC PANEL (05/29/2025 12:33 PM CDT) Blood us Alex Garcia MD CHEMISTRY ORDERABLES Final Resu lt * CBC WITH AUTODIFFERENTIAL (05/29/2025 11:49 AM CDT) Blood us Alex Garcia MD HEMATOLOGY ORDERABLES Final Res ult from Last 3 Months Insurance [facility] BLUE ACCESS/TRUE BLUE PPO Care Teams Automobile Body Customizer Relationship Specialty Start Date End Date Edmar Cervantes DO [address] [facility] [address] [place] [address] PCP - General Internal Medicine 08/15/24
--- OUTSIDE RECORDS SUMMARY | 2025-07-03 08:22 | XMS_ITS | Encounter Summary ---
Author Organization [facility] Address [address] [place] [address] Care Team Providers Care Surveillance Dual Rate Officer Name Role Phone Dante Ramos MD Primary Care Provider [phone] Encounter Details Date Type Department Care Team (Late st Contact Info) Description 04/10/2023 Lab Requisition [facility] - Pathology Lab [address] [place] [address] Charles Cadet MD [facility] [address] [phone] Localized enlarged lymph nodes Social History Tobacco [...] AM CDT) Case Report Flow Cytometry Case: [id number] Authorizing Provider: Charles Cadet MD Collected: 04/10/2023 09:55 AM Ordering Location: [facility] Care Pathology Lab Received: 04/10/2023 04:17 PM Pathologist: Jin Morton MD Specimen: Lymph Node, Left Axilla Lymph Node 04/13/2023 10:49 AM CDT [facility] Final Diagnosis Axillary lymph node, left, flow cytometric immunophenotypic analysis: - CD5-positive mature B-cell lymphoma (52.6% of total flow events). - See interpretation. 04/13/2023 10:49 AM [facility] PATHOLOGY LAB at 1049 CDT Flow Cytometry Interpretation The lymph node has [...] cytometry specimen is reviewed for quality assurance monitor final purposes. Correlation with clinical findings, tissue morphology and additional ancillary studies is required. 04/13/2023 10:49 AM [facility] Flow Cytometry Results Differential Result Comment Flow Cell Count /uL 3,600 Total Viability % 86.0 Lymphocytes % 100 Dim CD45 Region % 0 Monocytes % 0 Granulocytes % 0 04/13/2023 10:49 AM [facility] Reason for test Localized enlarged lymph nodes 785.6 04/13/2023 10:49 AM [facility] Client Specimen ID # [id number] 04/13/2023 10:49 AM [facility] Number of markers 16 were performed. A-2 Flow CD10 A-4 Flow CD20 A-5 Flow CD23 A-10 Flow CD2 A-11 Flow CD3 A-12 Flow CD4 A-16 Flow CD1a A-3 Flow CD19 A-6 Flow CD34 A-7 Flow CD45 A-13 Flow CD5 A-14 Flow CD7 A-15 Flow CD8 A-17 Flow CD30 A-8 [place]+CD19+ A-9 Lambda+CD19+ 04/13/2023 10:49 AM [facility] Pathologist Location at [facility] 04/13/2023 10:49 AM [facility] Disclaimer Test performed at [facility], [address] [place] [address], [address]. *The established laboratory minimum viability is 70%. [...] complexity clinical testing. 04/13/2023 10:49 AM CDT [facility] PATH[facility] Embedded Images 10:49 AM CDT [facility] Pathology/Cytolo gy ENTIRE LYMPH NODE / Unknown 04/10/2023 9:55 AM CDT 04/10/2023 4:17 PM CDT Charles Cadet MD LAB - PATHOLOGY/CYTOLOGY ORDERAB LES Final Result Performing Organization Address City/[facility] Co de Phone Number [facility] [address] [phone] documented in this encounter Visit Diagnoses Diagnosis Localized enlarged lymph nodes Enlargement of lymph nodes documented in this encounter Care Teams Surveillance Dual Rate Officer Relationship Specialty Start Date End Date Dante Ramos MD [address] [facility] [address] [place] [phone] PCP - General 07/21/19 documented as of this encounter
[2025-07-03 08:30] VITALS: O2SAT 98
--- OUTSIDE RECORDS SUMMARY | 2025-07-03 08:42 | XMS_ITS ---
Author Name Auto Generated, Auto Generated Organization [facility] Address [address] [place] [address] Care Team Providers Care Welfare Project Manager Name Role Phone Will Ochoa Certifying Physician - Home [facility] [phone] Leonid Myers Unavailable Unavailable Smith Hennessy Unavailable Unavailable Allergies and Intolerances Name Onset Reaction Severity No Known Allergies 2025-01-04 12:47:00 Care Team Name Role NPI Start Date Will Ochoa [facility] - Home [facility] [id number] 2024-08-25 00:00:00 Leonid Myers Care Welfare Project Manager Smith Hennessy Care Welfare Project Manager Encounters Admissions Program Name Primary Diagnosis Admission [...] needed for pain 2024-12-05 06:00:00 2024-12-23 06:00:00 [place] 10 mg-325 mg tablet 1-2 tab TABLET Oral PRN Every 6 Hours PRN PAIN, NOT TO EXCEED 6 TABS/ 24 HR PERIODRX [id number] [facility] 2024-12-05 06:00:00 2024-12-23 06:00:00 Problems Active Concerns Problem Code Start Date End Date Text Aftercare following joint replacement surgery Aftercare following joint replacement surgery 2024-11-29 00:00:00 senior living (current) use of anticoagulants senior living (current) use of anticoagulants 2024-12-05 00:00:00 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 2024-12-05 00:00:00 director long term care (current) use of aspirin director long term care (current) use of aspirin 2024-12-05 00:00:00 Presence of left artificial knee joint Presence of left artificial knee joint 2024-12-05 00:00:00 Dependence on other enabling machines and devices Dependence on other enabling machines and devices 2024-12-05 00:00:00 Other residential (current) drug therapy Other residential (current) drug therapy 2024-12-05 00:00:00 Nicotine dependence, cigarettes, uncomplicated Nicotine dependence, cigarettes, uncomplicated 2024-12-05 00:00:00 Emphysema, unspecified Emphysema, unspecified 20-12-09 00:00:00 Essential (primary) hypertension Essential (primary) hypertension 2024-12-05 00:00:00 Presence of right artificial knee joint Presence of right artificial knee joint 2024-12-05 00:00:00 Social History Observation Description Date Sex Male 1955 00:00 :00 Sex Male
--- OUTSIDE RECORDS SUMMARY | 2025-07-03 08:45 | XMS_ITS | Clinical Summary ---
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
--- OUTSIDE RECORDS SUMMARY | 2025-07-03 08:45 | XMS_ITS | Clinical Summary ---
Author Organization [facility] Address [address] [place] [address] Care Team Providers Care Staking Engineer Name Role Phone Dante Ramos MD Primary Care Provider [phone] Source Comments [facility],non-owned Affiliates and Associated Physician Practices is amultiple site organization consisting of ambulatory clinics and hospital sitesin [place], [place], [place] and [place]. This disclosure is being madepursuant to the Care Everywhere program and may not contain all information available regarding this patient. Last updated 18.[facility] [employer] Social History Tobacco Use Types Packs/Day Years [...] Relation to Subscriber:Self Name:TRISTAN JENKINS Payer ID:[id number] ([facility]) Type:PPO Address: [place] [phone] [facility] Member Subscriber Plan / Payer (Ef fective 2005-Present) Name:Tristan Jenkins Relation to Subscriber:Self Name:TRISTAN JENKINS Payer ID:[id number] ([facility]) Type:PPO Address: [place] [phone] [facility] Care Teams Staking Engineer Relationship Specialty Start Date End Date Dante Ramos MD [address] [facility] [address] [place] [address] PCP - General 07/21/19
--- OUTSIDE RECORDS SUMMARY | 2025-07-03 08:45 | XMS_ITS | Encounter Summary ---
Author Organization [facility] Address [address] [place] [address] Care Team Providers Care Passenger Vessel Chef Name Role Phone Dante Ramos MD Primary Care Provider [phone] Encounter Details Date Type Department Care Team (Late st Contact Info) Description 04/21/2023 Lab Requisition [facility] - Pathology Lab [address] [place] [address] Charles Cadet MD [facility] [address] [phone] Illness, unspecified Social History Tobacco Use Types [...] CDT) Case Report Surgical Pathology Report Case: [id number] Authorizing Provider: Charles Cadet MD Collected: 04/10/2023 09:55 AM Ordering Location: [facility] Pathology Lab Received: 04/21/2023 12:03 [...] advised. - See interpretation. 04/23/2023 9:46 AM [facility] at 0946 CDT Microscopic Description [...] to tissue section drop-out. 04/23/2023 9:46 AM [facility] Clinical History 04/23/2023 9:46 AM [facility] Materials Received Received are 3 slide(s), and 1 block labeled [id number] along with a copy of the outside pathology report. [place] [address]. All original materials are returned to the referring institution, along with a copy of our final report. 04/23/2023 9:46 AM [facility] Pathologist Location at [facility] 04/23/2023 9:46 AM [facility] Disclaimer The performance characteristics of all immunohistochemical and indirect immunofluorescence stains (if any) cited in this report were determined by the Histopathology Laboratory of [facility]. Some of these tests were developed [...] attending (teaching) pathologist. 04/23/2023 9:46 AM CDT [facility] Embedded Images 04/23/2023 9:46 AM CDT [facility] Pathology/Cytolo gy BIOPSY OF LYMPH NODE / Unknown 04/10/2023 9:55 AM CDT 04/21/2023 12:03 PM CDT Charles Cadet MD LAB - PATHOLOGY/CYTOLOGY ORDERAB LES Final Result [facility] [address] [phone] documented in this encounter Visit Diagnoses Diagnosis Illness, unspecified documented in this encounter Care Teams Passenger Vessel Chef Relationship Specialty Start Date End Date Dante Ramos MD [address] [facility] [address] [place] [address] PCP - General 07/21/19 documented as of this encounter
--- OUTSIDE RECORDS SUMMARY | 2025-07-03 08:45 | XMS_ITS | Encounter Summary ---
Author Organization [facility] Address [address] [facility] [place] [address] Care Team Providers Care Lockstitch Front Maker Name Role Phone Dante Ramos MD Primary Care Provider [phone] Encounter Details Date Type Department Care Team (Late st Contact Info) Description 04/10/2023 Lab Requisition [facility] - Pathology Lab [address] [place] [address] Charles Cadet MD [facility] [address] [phone] Localized enlarged lymph nodes Social History Tobacco [...] AM CDT) Case Report Flow Cytometry Case: [id number] Authorizing Provider: Charles Cadet MD Collected: 04/10/2023 09:55 AM Ordering Location: [facility] Care Pathology Lab Received: 04/10/2023 04:17 PM Pathologist: Jin Morton MD Specimen: Lymph Node, Left Axilla Lymph Node 04/13/2023 10:49 AM CDT [facility] Final Diagnosis Axillary lymph node, left, flow cytometric immunophenotypic analysis: - CD5-positive mature B-cell lymphoma (52.6% of total flow events). - See interpretation. 04/13/2023 10:49 AM [facility] at 1049 CDT Flow Cytometry [...] flow cytometry specimen is reviewed for quality control engineer purposes. Correlation with clinical findings, tissue morphology and additional ancillary studies is required. 04/13/2023 10:49 AM [facility] Flow Cytometry Results Differential Result Comment Flow Cell Count /uL 3,600 Total Viability % 86.0 Lymphocytes % 100 Dim CD45 Region % 0 Monocytes % 0 Granulocytes % 0 04/13/2023 10:49 AM [facility] Reason for test Localized enlarged lymph nodes 785.6 04/13/2023 10:49 AM [facility] Client Specimen ID # [id number] 04/13/2023 10:49 AM [facility] Number of markers 16 were performed. A-2 Flow CD10 A-4 Flow CD20 A-5 Flow CD23 A-10 Flow CD2 A-11 Flow CD3 A-12 Flow CD4 A-16 Flow CD1a A-3 Flow CD19 A-6 Flow CD34 A-7 Flow CD45 A-13 Flow CD5 A-14 Flow CD7 A-15 Flow CD8 A-17 Flow CD30 A-8 Watchung+CD19+ A-9 Lambda+CD19+ 04/13/2023 10:49 AM [facility] Pathologist Location at [facility] 04/13/2023 10:49 AM [facility] Disclaimer Test performed at [facility], [address] [place] [address], [id number]. *The established laboratory minimum viability is 70%. [...] complexity clinical testing. 04/13/2023 10:49 AM CDT [facility] Embedded Images 10:49 AM CDT [facility] Pathology/Cytolo gy ENTIRE LYMPH NODE / Unknown 04/10/2023 9:55 AM CDT 04/10/2023 4:17 PM CDT Charles Cadet MD LAB - PATHOLOGY/CYTOLOGY ORDERAB LES Final Result Performing Organization Address City/[facility] Co de Phone Number [facility] [address] [phone] documented in this encounter Visit Diagnoses Diagnosis Localized enlarged lymph nodes Enlargement of lymph nodes documented in this encounter Care Teams Lockstitch Front Maker Relationship Specialty Start Date End Date Dante Ramos MD [address] [facility] [address] [place] [phone] PCP - General 07/21/19 documented as of this encounter
--- OUTSIDE RECORDS SUMMARY | 2025-07-03 08:45 | XMS_ITS | Clinical Summary ---
Author Organization [facility] [address]elis [address] Address [address] [place] [address] Care Team Providers Care Medical Billing Service Name Role Phone Edmar Cervantes Primary Care Provider [phone] Allergies No known active allergies Medications amLODIPine [...] STL ABSTRACTION Provider, Abstract 06/12/2025 Orders Only [facility] Oncology and Hematology - [address] [place] [address] Alex Garcia MD Mantle cell lymphoma, unspecified body region (CMS/HCC) 05/29/2025 8:30 AM CDT Office Visit [facility] Hematology - [address] [place] [address] Alex Garcia MD Mantle cell lymphoma, unspecified body region (CMS/HCC) 05/29/2025 Orders Only [facility] Oncology and Hematology - [address] [place] [phone] Alex Garcia MD 05/25/2025 Orders Only [facility] Oncology and Hematology - [address] [place] [address] Alex Garcia MD Need for hepatitis B screening test (Primary Dx) 05/15/2025 Orders Only [facility] Oncology and Hematology [facility] [address] [place] [address] Alex Garcia MD Mantle cell lymphoma, unspecified body region (CMS/HCC) 05/01/2025 Orders Only [facility] Oncology and Hematology [facility] [address] [place] [phone] Alex Garcia MD Mantle cell lymphoma, unspecified body region (CMS/HCC) 04/17/2025 Orders Only [facility] Oncology and Hematology [facility] [address] [place] [phone] Alex Garcia MD Mantle cell lymphoma, unspecified body region (CMS/HCC) 04/11/2025 External Device Data STL ABSTRACTION Provider, Abstract 04/03/2025 9:00 AM CDT Office Visit [facility] Oncology [facility] Hematology [place] [address] [address] [place] [phone] Alex Garcia MD Mantle cell lymphoma, unspecified [...] Description 08/07/2025 9:45 AM CDT Office Visit [facility] Oncology and Hematology [facility] [address] [facility] [address] [place] [address] Alex Garcia MD [address] [facility] [address] [place] [address] Health Maintenance Due Date Last [...] Res ult from Last 3 Months Insurance [facility] BLUE ACCESS/TRUE BLUE PPO Care Teams Medical Billing Service Relationship Specialty Start Date End Date Edmar Cervantes DO [address] [facility] [address] [place] [address] PCP - General Internal Medicine 08/15/24
[2025-07-03 09:14] LABS: Influenza A QL RT-PCR Negative (Negative); Influenza B QL RT-PCR Negative (Negative); RSV RNA, RT-PCR Negative (Negative); SARS-CoV-2 RNA PCR Positive (Negative)
--- NOTE | 2025-07-03 09:51 | ED.GENADULT ---
HPI - General Adult General Chief complaint: Upper Respiratory Infection Stated complaint: positive COVID test, needs work note Time Seen by Provider: 07/03/25 08:31 History of Present Illness HPI narrative: 69-year-old male presenting to the emergency department for evaluation for cough congestion and a work note for is suspected COVID. Patient began developing symptoms on Thursday. Patient had worsening symptoms over the course of the weekend. Patient does have his daughter and grandchild living with him and they both tested positive for COVID yesterday. Patient present to the emergency department resting a work note for COVID. Patient denies any shortness of breath and patient was well-appearing at time of evaluation. Related Data Home Medications ?Medication ?Instructions ?Recorded ?Confirmed ?Last Taken ?Type aspirin 81 mg tablet,delayed 81 mg PO DAILY 07/09/21 06/27/25 02/13/22 History release (Adult Low Dose Aspirin) calcium carbonate (Calcium 600) 600 mg PO DAILY 06/26/22 06/27/25 Unknown History omega 9-kky-pmt-fish oil 300 1 cap PO DAILY 06/26/22 06/27/25 Unknown History mg-1,000 mg capsule (Fish Oil) odbdegmhkmzc-dgximpns-obvjxv tablet 1 tablet PO DAILY 02/05/23 06/27/25 Unknown History zinc acetate 50 mg (zinc) capsule 50 mg PO DAILY 02/05/23 06/27/25 Unknown History (Galzin) acetaminophen 650 mg 1,300 mg PO QAM PRN pain 02/06/25 06/27/25 Unknown History tablet,extended release (Tylenol Arthritis Pain) Allergies Allergy/AdvReac Type Severity Reaction Status Date / Time No Known Allergies Allergy Unknown Verified 07/03/25 08:31 Review of Systems Review of Systems: All systems reviewed & are unremarkable except as noted in HPI and below PMFSH Past Medical History Medical History Mantle cell lymphoma Nocturia Ganglion cyst Diverticulitis Hypertension Synovial cyst of left popliteal space Trigger finger of left thumb Postoperative dehiscence of skin wound (~06/2019) Prepatellar bursitis, right knee (~06/2019) Surgical History Surgical History H/O colonoscopy Family History Family History Grandparent Family history of malignant neoplasm Family history of malignant neoplasm of breast Family history of malignant neoplasm of breast in first degree relative Sibling Family history of thyroid disease Father No problems noted. Mother No problems noted. Sibling No problems noted. Other Family history of arthritis Social History Social History Smoking packs per day: 1 Smoking cigarettes per day: 20.0 Years smoked: 50 Smoking pack-years: 50.00 Smoking status: Current every day smoker Tobacco type: cigarettes Second hand tobacco smoke exposure: Yes Alcohol intake: current Drinks per week: 1 Alcohol use details: 2 DRINKS PER MONTH Substance use: current Substance use type: marijuana Last use: 05/17/23 Do You Feel Safe in your Home?: Yes Lack of Transportation: No Lack of Food: Never True Current Housing: I Have Housing Concerned About Future Housing: No Difficulty Paying Gas/Electric Bills: No Difficulty Paying for Meds: No Currently Unemployed: No Education: High School Diploma/GED Difficulty w/ Childcare or Family Care: No Living arrangements: with family Occupation/Education: occupation 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 HEAD: normocephalic, atraumatic. EYES: PERRLA/EOMI, conjunctivae clear. NOSE: Normal no drainage EARS:TMS clear with good light reflex. THROAT: Pharynx clear, no exudate. NECK: Supple. No adenopathy, no masses. RESPIRATORY: Airway patent, respirations nonlabored. Clear to auscultation bilaterally, no rales, rhonchi, wheezing. CARDIOVASCULAR: Regular rate and rhythm without murmurs rubs or gallops. ABDOMINAL: Soft, nontender, nondistended, normal bowel sounds MUSCULOSKELETAL: Moves all extremities. Strength/ROM intact, No edema, No calf tenderness. NEURO: Alert. Cranial nerves II through XII intact. Good gait. Good coordination SKIN: Warm, dry. Normal Color Course Vital Signs Vital signs: Vital Signs Temperature 98.1 F 07/03/25 08:16 Pulse Rate 79 07/03/25 08:16 Respiratory Rate 20 07/03/25 08:16 Blood Pressure 155/84 H 07/03/25 08:16 Pulse Oximetry 97 07/03/25 08:16 Oxygen Delivery Room Air 07/03/25 08:16 Temperature 98.1 F 07/03/25 08:16 Pulse Rate 79 07/03/25 08:16 Respiratory Rate 20 07/03/25 08:16 Blood Pressure 155/84 H 07/03/25 08:16 Pulse Oximetry 98 07/03/25 08:30 Oxygen Delivery Room Air 07/03/25 08:30 Medical Decision Making MDM Narrative Medical decision making narrative: 69-year-old male present to the emergency department for evaluation for cough and congestion. Patient did test positive for COVID. Patient was provided be drawn a alert Tessalon Perles for cough patient was encouraged to have close follow-up with primary care physician. All all questions concerns were addressed. Differential Diagnosis Differential Diagnosis: COVID, pneumonia, influenza, RSV Vital Signs Vital Signs: Vital Signs Temperature 98.1 F 07/03/25 08:16 Pulse Rate 79 07/03/25 08:16 Respiratory Rate 20 07/03/25 08:16 Blood Pressure 155/84 H 07/03/25 08:16 Pulse Oximetry 97 07/03/25 08:16 Oxygen Delivery Room Air 07/03/25 08:16 Temperature 98.1 F 07/03/25 08:16 Pulse Rate 79 07/03/25 08:16 Respiratory Rate 20 07/03/25 08:16 Blood Pressure 155/84 H 07/03/25 08:16 Pulse Oximetry 98 07/03/25 08:30 Oxygen Delivery Room Air 07/03/25 08:30 Lab Data Lab results reviewed: Yes I reviewed the patient's lab results. Labs: Lab Results 07/03/25 Range/Units 08:33 Influenza A (RT-PCR) Negative (Negative) Influenza B (RT-PCR) Negative (Negative) RSV (RT-PCR) Negative (Negative) SARS-CoV-2 RNA (RT-PCR) Positive A (Negative) Discharge Plan Discharge Clinical Impression: COVID Patient Disposition: Home Condition: Stable Instructions: Antibiotic Form, COVID-19 (Coronavirus Disease 2019) (ED) Additional Instructions: You tested positive for COVID. Albuterol inhaler for shortness of breath and Tessalon Perles for cough. Tylenol and ibuprofen for fever and for body aches. Have close follow-up with your primary care physician. Patient Language: Scottish Prescriptions: New benzonatate 100 mg capsule 100 mg PO TID PRN (Reason: cough) Qty: 14 0RF albuterol sulfate 90 mcg/actuation HFA aerosol inhaler 1 puff inhalation QID Qty: 6.7 0RF No Action acetaminophen [Tylenol Arthritis Pain] 650 mg tablet extended release 1,300 mg PO QAM PRN (Reason: pain) Patient Comments: . aspirin [Adult Low Dose Aspirin] 81 mg tablet,delayed release (DR/EC) 81 mg PO DAILY omega 0-egq-bym-fish oil [Fish Oil] 300-1,000 mg capsule 1 cap PO DAILY calcium carbonate [Calcium 600] 600 mg calcium (1,500 mg) tablet 600 mg PO DAILY niwbryfqhozu-fwxichft-psgxdb Tablet 1 tablet PO DAILY Galzin 50 mg (zinc) capsule 50 mg PO DAILY amlodipine 10 mg tablet 10 mg PO DAILY Qty: 90 2RF Rx Instructions: TAKE 1 TABLET BY MOUTH DAILY omeprazole 20 mg capsule,delayed release(DR/EC) 20 mg PO DAILY Qty: 14 0RF Rx Instructions: Take around supper time doxycycline hyclate 100 mg capsule 100 mg PO BID Qty: 20 0RF Rx Instructions: Avoid calcium and mineral supplements while taking metoprolol tartrate 50 mg tablet See Rx Instructions .ROUTE .COMPLEX Qty: 90 2RF Dose Instruction: TAKE 1 TABLET BY MOUTH DAILY Rx Instructions: TAKE 1 TABLET BY MOUTH DAILY meloxicam 15 mg tablet 15 mg PO DAILY Qty: 90 1RF Follow-up/Referrals: Roland Cisse APRN [Primary Care Provider, Internal Medicine] Stand Alone Forms: Work/School Release IP
== END 2025-07-03 10:15 | disposition home or self-care (01) ==
PROVIDERS: Emergency Provider Emergency Medicine; PCP Nurse Practitioner
DX: U07.1 COVID-19 (principal); F17.210 Nicotine dependence, cigarettes, uncomplicated; I10 Essential (primary) hypertension; Z85.72 Personal history of non-Hodgkin lymphomas
CPT/HCPCS: 87637; 99283

== ENCOUNTER 2025-07-31 08:57 | Outpatient (CLI) | payer BC, SELFPAY ==
--- NOTE | ~2025-07-31 | CT_ITS ---
EXAMINATION: CT chest abdomen pelvis w con DATE: 07/31/2025 09:24 INDICATION: Mantle cell lymphoma. TECHNIQUE: Computed tomography (CT) of the chest, abdomen, and pelvis was performed with 100 mL Omnipaque 350 intravenous contrast. Automated exposure control and iterative reconstruction technique were employed. The dose-length product was 1302.50 mGy-cm. COMPARISON: CT 02/14/2025, 05/04/2020 FINDINGS: CHEST CT: There is mild emphysema. There is an 8 mm nodule in right upper lobe abutting the pleura. No pleural effusion. There is a left internal jugular port with tip in superior vena cava. The heart size is normal. No pericardial effusion. There is a 7 mm nodule in the thyroid, likely not clinically significant. There is severe cervical and thoracic spondylosis. ABDOMEN/PELVIS CT: The liver, gallbladder, spleen, pancreas, and right adrenal gland are normal. There is a 3.6 cm mass in left adrenal gland measuring soft tissue attenuation, stable from 05/04/2020, likely an adenoma. There are cysts in the kidneys measuring up to 3.3 cm on the right. There is a 7 mm stone in left kidney. There is a right inguinal hernia containing fat. There is diverticulosis of the colon without evidence of diverticulitis. The appendix is normal. There are no dilated loops of bowel. There are no pathologically enlarged lymph nodes. There is no free intraperitoneal fluid. There is severe lumbar spondylosis. IMPRESSION: 1. No evidence of lymphoma. 2. New 8 mm right upper lobe pulmonary nodule suspicious for primary bronchogenic carcinoma. Noncontrast chest CT is recommended in 3 months. Reviewed, dictated and finalized at location E. IMPRESSION: 1. No evidence of lymphoma. 2. New 8 mm right upper lobe pulmonary nodule suspicious for primary bronchogen ic carcinoma. Noncontrast chest CT is recommended in 3 months.
--- OUTSIDE RECORDS SUMMARY | 2025-07-31 09:38 | XMS_ITS | Encounter Summary ---
Author Organization [facility] Address [address] [facility] [place] [address] Care Team Providers Care Tool Repairer Name Role Phone Dante Ramos MD Primary Care Provider [phone] Encounter Details Date Type Department Care Team (Late st Contact Info) Description 04/10/2023 Lab Requisition [facility] - Pathology Lab [address] [place] [address] Charles Cadet MD [facility] [address] [phone] Localized enlarged lymph nodes Social History Tobacco [...] AM CDT) Case Report Flow Cytometry Case: [id number] Authorizing Provider: Charles Cadet MD Collected: 04/10/2023 09:55 AM Ordering Location: [facility] Care Pathology Lab Received: 04/10/2023 04:17 PM Pathologist: Jin Morton MD Specimen: Lymph Node, Left Axilla Lymph Node 04/13/2023 10:49 AM CDT [facility] Final Diagnosis Axillary lymph node, left, flow cytometric immunophenotypic analysis: - CD5-positive mature B-cell lymphoma (52.6% of total flow events). - See interpretation. 04/13/2023 10:49 AM [facility] PATHOLOGY LAB at 1049 CDT Flow Cytometry [...] the flow cytometry specimen is reviewed for research quality assurance analyst purposes. Correlation with clinical findings, tissue morphology and additional ancillary studies is required. 04/13/2023 10:49 AM [facility] PATHOLOGY LAB Flow Cytometry Results Differential Result Comment Flow Cell Count /uL 3,600 Total Viability % 86.0 Lymphocytes % 100 Dim CD45 Region % 0 Monocytes % 0 Granulocytes % 0 04/13/2023 10:49 AM [facility] PATHOLOGY LAB Reason for test Localized enlarged lymph nodes 785.6 04/13/2023 10:49 AM [facility] PATHOLOGY LAB Client Specimen ID # [id number] 04/13/2023 10:49 AM [facility] PATHOLOGY LAB Number of markers 16 were performed. A-2 Flow CD10 A-4 Flow CD20 A-5 Flow CD23 A-10 Flow CD2 A-11 Flow CD3 A-12 Flow CD4 A-16 Flow CD1a A-3 Flow CD19 A-6 Flow CD34 A-7 Flow CD45 A-13 Flow CD5 A-14 Flow CD7 A-15 Flow CD8 A-17 Flow CD30 A-8 [place]+CD19+ A-9 Lambda+CD19+ 04/13/2023 10:49 AM [facility] PATHOLOGY LAB Pathologist Location at [facility] 04/13/2023 10:49 AM [facility] PATHOLOGY LAB Disclaimer Test performed at [facility], [address] [place] [address], [address]. *The established laboratory minimum viability is 70%. [...] complexity clinical testing. 04/13/2023 10:49 AM CDT [facility] PATHOLOGY LAB Embedded Images 10:49 AM CDT [facility] PATHOLOGY LAB Pathology/Cytolo gy ENTIRE LYMPH NODE / Unknown 04/10/2023 9:55 AM CDT 04/10/2023 4:17 PM CDT Charles Cadet MD LAB - PATHOLOGY/CYTOLOGY ORDERAB LES Final Result Performing Organization Address City/[facility] Co de Phone Number [facility] PATHOLOGY LAB [address] [phone] documented in this encounter Visit Diagnoses Diagnosis Localized enlarged lymph nodes Enlargement of lymph nodes documented in this encounter Care Teams Tool Repairer Relationship Specialty Start Date End Date Dante Ramos MD [address] [facility] [address] [place] [address] PCP - General 07/21/19 documented as of this encounter
--- OUTSIDE RECORDS SUMMARY | 2025-07-31 09:38 | XMS_ITS | Clinical Summary ---
Author Organization [facility] [address] Address [address] [place] [address] Care Team Providers Care Ski Production Supervisor Name Role Phone Roland Cisse NP Primary Care Provider [phone] Allergies No known active allergies Medications No known medications Active Problems No known active problems Social History Tobacco Use Types Packs/Day Years Used Date Smoking Tobacco: Never Assessed Personal Safety Answer Date Recorded Getting School Help Needed Not on file 08/01 Sex and Gender Information Value Date Recorded Sex Assigned at Not on file Legal 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
--- OUTSIDE RECORDS SUMMARY | 2025-07-31 09:38 | XMS_ITS | Encounter Summary ---
Author Organization [facility] [employer] [facility] Address [address] [place] [address] Care Team Providers Care Lead Systems Developer Name Role Phone Edmar Cervantes DO Primary Care Provider [phone] Encounter Details Date Type Department Care Team ([facility] Contact Info) Description 07/31/2025 Orders Only [facility] Oncology and Hematology [facility] [address] [place] [address] Alex Garcia MD [facility] [address] [place] [phone] Mantle cell lymphoma, unspecified body region (CMS/HCC) Social History Tobacco Use Types Packs/Day Years [...] as of this encounter Plan of Treatment Upcoming Encounters Date Type Department Care Team (Late st Contact Info) Description 08/07/2025 9:45 AM CDT Office Visit [facility] Oncology and Hematology [facility] [address] [place] [address] Alex Garcia MD [address] [place] [phone] documented as of this encounter Visit Diagnoses Diagnosis Mantle cell lymphoma, unspecified body region (CMS/HCC) documented in this encounter Care Teams Lead Systems Developer Relationship Specialty Start Date End Date Edmar Cervantes DO [address] [facility] [address] [facility] [address] [place] [phone] PCP - General Internal Medicine 08/15/24 documented as of this encounter
--- OUTSIDE RECORDS SUMMARY | 2025-07-31 09:38 | XMS_ITS | Encounter Summary ---
Author Organization [facility] Address [address] [facility] [place] [address] Care Team Providers Care Pantograph Engraver Name Role Phone Dante Ramos MD Primary Care Provider [phone] Encounter Details Date Type Department Care Team (Late st Contact Info) Description 04/21/2023 Lab Requisition [facility] - Pathology Lab [address] [place] [address] Charles Cadet MD [facility] [address] [phone] Illness, unspecified Social History Tobacco Use Types [...] CDT) Case Report Surgical Pathology Report Case: [id number] Authorizing Provider: Charles Cadet MD Collected: 04/10/2023 09:55 AM Ordering Location: [facility] Pathology Lab Received: 04/21/2023 12:03 PM Pathologist: [...] advised. - See interpretation. 04/23/2023 9:46 AM [facility] PATHOLOGY LAB at 0946 CDT [...] to tissue section drop-out. 04/23/2023 9:46 AM [facility] PATHOLOGY LAB Clinical History 04/23/2023 9:46 AM [facility] PATHOLOGY LAB Materials Received Received are 3 slide(s), and 1 block labeled [id number] along with a copy of the outside pathology report. [place] [address]. All original materials are returned to the referring institution, along with a copy of our final report. 04/23/2023 9:46 AM [facility] PATHOLOGY LAB Pathologist Location at [facility] 04/23/2023 9:46 AM [facility] PATHOLOGY LAB Disclaimer The performance characteristics of all immunohistochemical and indirect immunofluorescence stains (if any) cited in this report were determined by the Histopathology Laboratory of [facility]. Some of these tests were developed by [...] attending (teaching) pathologist. 04/23/2023 9:46 AM CDT [facility] PATHOLOGY LAB Embedded Images 04/23/2023 9:46 AM CDT [facility] PATHOLOG[facility] LAB Pathology/Cytolo gy BIOPSY OF LYMPH NODE / Unknown 04/10/2023 9:55 AM CDT 04/21/2023 12:03 PM CDT Charles Cadet MD LAB - PATHOLOGY/CYTOLOGY ORDERAB LES Final Result [facility] PATH[facility] LAB [address] [phone] documented in this encounter Visit Diagnoses Diagnosis Illness, unspecified documented in this encounter Care Teams Pantograph Engraver Relationship Specialty Start Date End Date Dante Ramos MD [address] [facility] [address] [place] [address] PCP - General 07/21/19 documented as of this encounter
--- OUTSIDE RECORDS SUMMARY | 2025-07-31 09:38 | XMS_ITS | Clinical Summary ---
Author Organization [facility] Address [address] [place] [address] Care Team Providers Care Staple Side Laster Name Role Phone Dante Ramos MD Primary Care Provider [phone] Source Comments [facility],non-owned Affiliates and Associated Physician Practices is amultiple site organization consisting of ambulatory clinics and hospital sitesin [place], [place], [place] and [place]. This disclosure is being madepursuant to the Care Everywhere program and may not contain all information available regarding this patient. Last updated 18.[facility] Social History Tobacco Use Types Packs/Day Years [...] 2003 ZOSTER VACCINE (1 of 2) 2003 DEPRESSION SCREENING 10/26/2024 COVID-19 VACCINE ( - 2023-2 5 season) 2025 INFLUENZA VACCINE (#1) 2025 Respiratory Syncytial Virus [...] Relation to Subscriber:Self Name:TRISTAN JENKINS Payer ID:[id number] ([facility]) Type:PPO Address: [place] [id number] COUNTS INCLUDE 234 BEDS AT [facility] Member Subscriber Plan / Payer (Ef fective 2005-Present) Name:Tristan Jenkins Relation to Subscriber:Self Name:TRISTAN JENKINS Payer ID:[id number] ([facility]) Type:PPO Address: [place] [id number] [facility] Care Teams Staple Side Laster Relationship Specialty Start Date End Date Dante Ramos MD [address] [facility] [address] [place] [address] PCP - General 07/21/19
--- OUTSIDE RECORDS SUMMARY | 2025-07-31 09:38 | XMS_ITS | Clinical Summary ---
Author Organization [facility] [address] Address [address] [place] [address] Care Team Providers Care Bryologist Name Role Phone Edmar Cervantes Primary Care Provider [phone] Allergies No known active allergies Medications amLODIPine (NORVASC) 5 mg tablet Take 5 mg by mouth daily. 10/03/2024 Active metoprolol tartrate (LOPRESSOR) 50 mg tablet Take 1 Tablet by mouth daily. 10/04/2024 Active meloxicam (MOBIC) 15 mg tablet Take 1 Tablet by mouth daily. 10/01/2024 Active Active Problems No known active problems Encounters Date Type Department Care Team Description 07/31/2025 Orders Only [facility] Oncology and Hematology - [address] [place] [address] Alex Garcia MD Mantle cell lymphoma, unspecified body region (CMS/HCC) 07/25/2025 Orders Only [facility] Oncology and Hematology - [address] [place] [address] Alex Garcia MD 07/21/2025 Orders Only [facility] Oncology and Hematology - [address] [place] [address] Alex Garcia MD Mantle cell lymphoma, unspecified body region (CMS/HCC) (Primary Dx) 06/27/2025 External Device Data STL ABSTRACTION Provider, Abstract 06/13/2025 External Device Data STL ABSTRACTION Provider, Abstract 06/12/2025 Orders Only [facility] Oncology and Hematology - [address] [place] [phone] Alex Garcia MD Mantle cell lymphoma, unspecified body region (CMS/HCC) 05/29/2025 8:30 AM CDT Office Visit [facility] Oncology and Hematology [facility] [address] [place] [phone] Alex Garcia MD Mantle cell lymphoma, unspecified body region (CMS/HCC) 05/29/2025 Orders Only [facility] Oncology and Hematology - [address] [place] [phone] Alex Garcia MD 05/25/2025 Orders Only [facility] Oncology and Hematology - [address] [place] [phone] Alex Garcia MD Need for hepatitis B screening test (Primary Dx) 05/15/2025 Orders Only [facility] Oncology and Hematology - [address] [place] [phone] Alex Garcia MD Mantle cell lymphoma, unspecified body region (CMS/HCC) 05/01/2025 Orders Only [facility] Oncology and Hematology - [address] [place] [phone] Alex Garcia MD Mantle cell lymphoma, unspecified [...] Description 08/07/2025 9:45 AM CDT Office Visit [facility] Oncology and Hematology [facility] [address] [facility] [address] [place] [address] Alex Garcia MD [address] [facility] [address] [place] [address] Health Maintenance Due Date Last [...] Procedure Name Priority Date/Time Associated Diagnosis Comments COMPREHENSIVE METABOLIC PANEL Routine 07/24/2025 10:38 AM CDT BASIC METABOLIC PANEL Routine 05/29/2025 12:33 PM CDT CBC WITH AUTODIFFERENTIAL Routine 2024 11:49 AM CDT from Last 3 Months Results * COMPREHENSIVE METABOLIC PANEL (07/24/2025 10:38 AM CDT) Blood us Alex Garcia MD CHEMISTRY ORDERABLES Final Resu lt * BASIC METABOLIC PANEL (05/29/2025 12:33 PM CDT) Blood Alex Garcia MD CHEMISTRY ORDERABLES Final Resu lt * CBC WITH AUTODIFFERENTIAL (05/29/2025 11:49 AM CDT) Blood Alex Garcia MD HEMATOLOGY ORDERABLES Final Res ult from Last 3 Months Insurance [facility] BLUE ACCESS/TRUE BLUE PPO Care Teams Bryologist Relationship Specialty Start Date End Date Edmar Cervantes DO [address] [facility] [address] [place] [address] PCP - General Internal Medicine 08/15/24
== END 2025-07-31 08:58 | disposition home or self-care (01) ==
PROVIDERS: PCP Nurse Practitioner; Visit Provider Internal Medicine Hematology & Oncology
DX: R91.1 Solitary pulmonary nodule (principal); C83.10 Mantle cell lymphoma, unspecified site
CPT/HCPCS: 71260; 74177; Q9967

== ENCOUNTER 2025-09-25 10:46 | Outpatient (CLI) | payer BC, SELFPAY ==
--- NOTE | ~2025-09-25 | CT_ITS ---
EXAMINATION:CT diagnostic chest wo con DATE: 09/25/2025 11:11 INDICATION: Lung nodule. Lymphoma. TECHNIQUE: Computed tomography (CT) of the chest was performed without intravenous contrast. Automated exposure control and iterative reconstruction technique were employed. The dose-length product (DLP) was 163.77 mGy-cm. COMPARISON: Chest CT 07/31/2025, 02/14/2025 FINDINGS: There is mild emphysema. There is an 8 mm nodule in right upper lobe abutting the mediastinum without change from 07/31/2025 and new from 02/14/2025. No pleural effusion. The heart size is normal. No pericardial effusion. There is a left internal jugular port with tip in superior vena cava. There is a 3.3 cm mass in left adrenal gland measuring low attenuation, consistent with an adenoma. There is thoracic dextroscoliosis and severe spondylosis. IMPRESSION: 1. 8 mm pulmonary nodule, stable from 07/31/2025 and new from 02/14/2025, probably benign. Noncontrast chest CT is recommended in 6 months. Reviewed, dictated and finalized at location E. ER FRAME BACK TENDER IMPRESSION: 1. 8 mm pulmonary nodule, stable from 07/31/2025 and new from 02/14/2025, probabl y benign. Noncontrast chest CT is recommended in 6 months.
--- OUTSIDE RECORDS SUMMARY | 2025-09-25 12:34 | XMS_ITS | Encounter Summary ---
Author Organization [facility] Address [address] [facility] [place] [address] Care Team Providers Care Telephoto Installer Name Role Phone Dante Ramos MD Primary Care Provider [phone] Encounter Details Date Type Department Care Team (Late st Contact Info) Description 04/10/2023 Lab Requisition [facility] - Pathology Lab [address] [place] [address] Charles Cadet MD [facility] [address] [phone] Localized enlarged lymph nodes Social History Tobacco [...] AM CDT) Case Report Flow Cytometry Case: [id number] Authorizing Provider: Charles Cadet MD Collected: 04/10/2023 09:55 AM Ordering Location: [facility] Care Pathology Lab Received: 04/10/2023 04:17 PM Pathologist: Jin Morton MD Specimen: Lymph Node, Left Axilla Lymph Node 04/13/2023 10:49 AM CDT [facility] Final Diagnosis Axillary lymph node, left, flow cytometric immunophenotypic analysis: - CD5-positive mature B-cell lymphoma (52.6% of total flow events). - See interpretation. 04/13/2023 10:49 AM [facility] PATHOLOGY LAB at 1049 CDT Flow [...] cytometry specimen is reviewed for quality control projectionist purposes. Correlation with clinical findings, tissue morphology and additional ancillary studies is required. 04/13/2023 10:49 AM [facility] PATH[facility] Flow Cytometry Results Differential Result Comment Flow Cell Count /uL 3,600 Total Viability % 86.0 Lymphocytes % 100 Dim CD45 Region % 0 Monocytes % 0 Granulocytes % 0 04/13/2023 10:49 AM [facility] PATH[facility] Reason for test Localized enlarged lymph nodes 785.6 04/13/2023 10:49 AM [facility] Client Specimen ID # [id number] 04/13/2023 10:49 AM [facility] Number of markers 16 were performed. A-2 Flow CD10 A-4 Flow CD20 A-5 Flow CD23 A-10 Flow CD2 A-11 Flow CD3 A-12 Flow CD4 A-16 Flow CD1a A-3 Flow CD19 A-6 Flow CD34 A-7 Flow CD45 A-13 Flow CD5 A-14 Flow CD7 A-15 Flow CD8 A-17 Flow CD30 A-8 [place]+CD19+ A-9 Lambda+CD19+ 04/13/2023 10:49 AM [facility] PATH[facility] Pathologist Location at [facility] 04/13/2023 10:49 AM [facility] PATH[facility] LAB Disclaimer Test performed at [facility], [address] [place] [address], [address]. *The established laboratory minimum viability is 70%. [...] complexity clinical testing. 04/13/2023 10:49 AM CDT [facility] PATHOLOGY LAB Embedded Images 10:49 AM CDT [facility] PATH[facility] LAB Pathology/Cytolo gy ENTIRE LYMPH NODE / Unknown 04/10/2023 9:55 AM CDT 04/10/2023 4:17 PM CDT Charles Cadet MD LAB - PATHOLOGY/CYTOLOGY ORDERAB LES Final Result Performing Organization Address City/[facility] Co de Phone Number [facility] PATHOLOGY LAB [address] [phone] documented in this encounter Visit Diagnoses Diagnosis Localized enlarged lymph nodes Enlargement of lymph nodes documented in this encounter Care Teams Telephoto Installer Relationship Specialty Start Date End Date Dante Ramos MD [address] [facility] [address] [place] [address] PCP - General 07/21/19 documented as of this encounter
--- OUTSIDE RECORDS SUMMARY | 2025-09-25 12:34 | XMS_ITS | Encounter Summary ---
Author Organization [facility] Address [address] [place] [address] Care Team Providers Care Chute Builder Name Role Phone Edmar Cervantes DO Primary Care Provider [phone] Encounter Details Date Type Department Care Team (Late Contact Info) Description 09/25/2025 Orders Only [facility] Oncology and Hematology [address] [place] [address] Alex Garcia MD [address] [place] [phone] Mantle cell lymphoma, unspecified body region [...] Encounters Date Type Department Care Team (Late Contact Info) Description 10/02/2025 9:45 AM FILE KEEPER Office Visit [facility] Oncology and Hematology - [address] [place] [address] Alex Garcia MD [address] [place] [address] documented as of this encounter Visit Diagnoses Diagnosis Mantle cell lymphoma, unspecified body region (CMS/HCC) documented in this encounter Care Teams Chute Builder Relationship Specialty Start Date End Date Edmar Cervantes DO [address] [facility] [address] [facility] [address] [place] [address] PCP - General Internal Medicine 08/15/24 documented as of this encounter
--- OUTSIDE RECORDS SUMMARY | 2025-09-25 12:34 | XMS_ITS | Clinical Summary ---
Author Organization [facility] Aracelis seth Bourne Address [address] [place] [address] Care Team Providers Care Pyrotechnic Mixer Name Role Phone Edmar Cervantes Primary Care Provider Allergies No known active allergies Medications amLODIPine (NORVASC) 5 mg tablet Take 5 mg by mouth daily. 10/03/2024 Active metoprolol tartrate (LOPRESSOR) 50 mg tablet Take 1 Tablet by mouth daily. 10/04/2024 Active meloxicam (MOBIC) 15 mg tablet Take 1 Tablet by mouth daily. 10/01/2024 Active Active Problems No known active problems Encounters Date Type Department Care Team Description 09/25/[address] [facility] Oncology and Hematology - Carl [address] [place] [phone] Alex Garcia MD Mantle cell lymphoma, unspecified body region (CMS/HCC) 09/18/[address] [facility] Oncology and Hematology - [place] [address] [place] [address] Alex Garcia MD 09/11/[address] [facility] Oncology and Hematology - [place] [address] [place] [address] Alex Garcia MD Mantle cell lymphoma, unspecified body region ([facility]/HCC) 08/28/[address] [facility] Oncology and Hematology - [place] [address] [place] [address] Alex Garcia MD Mantle cell lymphoma, unspecified body region (CMS/HCC) 08/14/[address] [facility] Oncology and Hematology - [address] [place] [address] Alex Garcia MD Mantle cell lymphoma, unspecified body region (CMS/HCC) 08/07/2025 9:45 AM CDT Office Visit [facility] Oncology and Hematology - [place] [address] [place] [address] Alex Garcia MD Mantle cell lymphoma, unspecified body region (CMS/HCC) (Primary Dx); Lung nodule 08/07/[address] [facility] Oncology and Hematology - [place] [address] [place] [address] Alex Garcia MD 08/01/2025 Orders Only [facility] Oncology and Hematology - [place] [address] [place] [phone] Alex Garcia MD 07/31/[address] [facility] Oncology and Hematology - [address] Alex Garcia MD Mantle cell lymphoma, unspecified body region (CMS/HCC) 07/25/2025 Orders Only [facility] Oncology and Hematology - [place] [address] [place] [address] Alex Garcia MD 07/21/2025 Orders Only [facility] Oncology and Hematology - [place] [address] [place] [id number] Alex Garcia MD Mantle cell lymphoma, unspecified [...] Sign Reading Time Taken Comments Blood Pressure 136/90 08/07/2025 9:47 AM CDT Pulse 79 08/07/2025 9:47 AM CDT Temperature 36 C (96.8 F) 08/07/2025 9:47 AM CDT Respiratory Rate 16 08/07/2025 9:47 AM CDT Oxygen Saturation 91% 08/07/2025 9:47 AM CDT Inhaled Oxygen Concentration - - Weight 95.8 kg (211 lb 3.2 oz) 08/07/2025 9:47 A M CDT Height - - Body Mass Index - - Plan of Treatment Upcoming Encounters Date Type Department Care Team (Late st Contact Info) Description 10/02/2025 9:45 AM OPTICAL INSTRUMENTS SUPERVISOR Office Visit [facility] Oncology and Hematology - [place] [address] [facility] [address] [place] [address] Alex Garcia MD [address] [facility] [address] [place] [address] Health Maintenance Due Date Last Done Comments DTAP/TDAP/TD VACCINES (1 - Tdap) 1972 PNEUMOCOCCAL VACCINE 50+ YEARS (1 of 2 - PCV) 12/22/18 73 COLORECTAL SCREENING 1998 Colorectal Cancer Screening 1998 FIT-DNA Q 3 years 1998 FIT/FOBT Q 1 year 1998 Flex Sig/CT Colonography Q 5 years 1998 RSV VACCINE (60+ or ) (1 - Risk 50-74 years 1-dose series) 2003 ZOSTER VACCINE (1 of 2) 2003 Abdominal Aortic Aneurysm (AAA) Screening 2018 INFLUENZA VACCINE (#1) 2025 Procedures Procedure Name Priority Date/Time Associated Diagnosis Comments COMPREHENSIVE METABOLIC PANEL Routine 09/18/2025 4:24 PM OPTICAL INSTRUMENTS SUPERVISOR CBC WITH AUTODIFFERENTIAL Routine 2024 4:07 PM OPTICAL INSTRUMENTS SUPERVISOR CBC WITH AUTODIFFERENTIAL Routine 2024 1:[address] CHEST ABDOMEN PELVIS W CONT Routine 07/31/2025 12:35 PM CDT CBC WITH AUTODIFFERENTIAL Routine 2024 11:20 AM CDT COMPREHENSIVE METABOLIC PANEL Routine 07/24/2025 10:38 AM CDT from Last 3 Months Results * COMPREHENSIVE METABOLIC PANEL (09/18/2025 4:24 PM OPTICAL INSTRUMENTS SUPERVISOR) Only the most recent of2 resultswithin the time period is included. Blood us Alex Garcia MD CHEMISTRY ORDERABLES Final Resu lt * CBC WITH AUTODIFFERENTIAL (09/18/2025 4:07 PM OPTICAL INSTRUMENTS SUPERVISOR) Only the most recent of3 resultswithin the time period is included. Blood us Alex Garcia MD HEMATOLOGY ORDERABLES Final Res ult * CT CHEST ABDOMEN PELVIS W CONT (07/31/2025 12:35 PM CDT) Anatomical Region Laterality Modality Chest Computed Tomogra phy us Alex Garcia MD CT ORDERABLES Final Result from Last 3 Months Insurance BCBS BLUE ACCESS/TRUE BLUE PPO Care Teams Pyrotechnic Mixer Relationship Specialty Start Date End Date Edmar Cervantes DO [address] [facility] [address] [facility] [address] [place] [phone] PCP - General Internal Medicine 08/15/24
--- OUTSIDE RECORDS SUMMARY | 2025-09-25 12:34 | XMS_ITS | Clinical Summary ---
Author Organization [facility] Address [address] [facility] [place] [address] Care Team Providers Care Bite Block Maker Name Role Phone Dante Ramos MD Primary Care Provider [phone] Source Comments [facility],non-owned Affiliates and Associated Physician Practices is amultiple site organization consisting of ambulatory clinics and hospital sitesin [place], [place], [place] and [place]. This disclosure is being madepursuant to the Care Everywhere program and may not contain all information available regarding this patient. Last updated 18.[facility] [employer] Social History Tobacco Use Types Packs/Day Years [...] DEPRESSION SCREENING 10/26/2024 COVID-19 VACCINE ( - 2024-2 6 season) 2025 INFLUENZA VACCINE (#1) 2025 Respiratory [...] Relation to Subscriber:Self Name:TRISTAN JENKINS Payer ID:[id number] ([facility]) Type:PPO Address: [place] [phone] [facility] Member Subscriber Plan / Payer (Ef fective 2005-Present) Name:Tristan Jenkins Relation to Subscriber:Self Name:TRISTAN JENKINS Payer ID:[id number] ([facility]) Type:PPO Address: [place] [phone] [facility] Care Teams Bite Block Maker Relationship Specialty Start Date End Date Dante Ramos MD [address] [facility] [address] [place] [address] PCP - General 07/21/19
--- OUTSIDE RECORDS SUMMARY | 2025-09-25 12:34 | XMS_ITS | Encounter Summary ---
Author Organization [facility] Address [address] [facility] [place] [address] Care Team Providers Care Geoscience Professor Name Role Phone Dante Ramos MD Primary Care Provider [phone] Encounter Details Date Type Department Care Team (Late st Contact Info) Description 04/21/2023 Lab Requisition [facility] - Pathology Lab [address] [place] [address] Charles Cadet MD [facility] [address] [phone] Illness, unspecified Social History Tobacco Use Types [...] CDT) Case Report Surgical Pathology Report Case: [id number] Authorizing Provider: Charles Cadet MD Collected: 04/10/2023 09:55 AM Ordering Location: [facility] Pathology Lab Received: 04/21/2023 12:03 PM Pathologist: [...] - See interpretation. 04/23/2023 9:46 AM [facility] PATHOLOGY LAB at 0946 CDT [...] tissue section drop-out. 04/23/2023 9:46 AM [facility] PATHOLOGY LAB Clinical History 04/23/2023 9:46 AM [facility] PATHOLOGY LAB Materials Received Received are 3 slide(s), and 1 block labeled [id number] along with a copy of the outside pathology report. [place] [address]. All original materials are returned to the referring institution, along with a copy of our final report. 04/23/2023 9:46 AM [facility] PATHOLOGY LAB Pathologist Location at [facility] 04/23/2023 9:46 AM [facility] PATHOLOGY LAB Disclaimer The performance characteristics of all immunohistochemical and indirect immunofluorescence stains (if any) cited in this report were determined by the Histopathology Laboratory of [facility]. Some of these tests were developed [...] [facility] PATHOLOGY LAB [address] [phone] documented in this encounter Visit Diagnoses Diagnosis Illness, unspecified documented in this encounter Care Teams Geoscience Professor Relationship Specialty Start Date End Date Dante Ramos MD [address] [facility] [address] [place] [address] PCP - General 07/21/19 documented as of this encounter
--- OUTSIDE RECORDS SUMMARY | 2025-09-25 12:35 | XMS_ITS | Clinical Summary ---
Author Organization [facility] [address] [place] Address [address] [place] [address] Care Team Providers Care Bag Making Machine Tender Name Role Phone Roland Cisse NP Primary Care Provider [phone] Allergies No known active allergies Medications No known medications Active Problems No known active problems Social History Tobacco Use Types Packs/Day Years Used Date Smoking Tobacco: Never Assessed Personal Safety Answer Date Recorded Getting School Help Needed Not on file 08/01 Sex and Gender Information Value Date Recorded Sex Assigned at Not on file Legal Sex Male 6:29 PM ACCOUNTANT HELPER Gender Identity Not on file Sexual Orientation [...] 2018 Well Visit 65+ 2018 Covid-19 Vaccine (2024-2 6 season) 2025 07/08/2024, 07/20/2021, 01/03/2021, Additional history exists Influenza Vaccine (#1) 2025 4, 07/30/2023, 07/20/2021, Additional history exists DTaP/Tdap/Td Vaccine (2 - Td or Tdap) 12/20/2032 12/20/2022 Zoster Vaccine Completed 04/18/2022, 11/15/2021 Pneumococcal vaccine 65+ Completed 08/14/2023 Insurance [employer] Care Teams Bag Making Machine Tender Relationship Specialty Start Date End Date Roland Cisse NP [address] [place] [address] PCP - General Nurse Practitioner 08/01/24
== END 2025-09-25 10:47 | disposition home or self-care (01) ==
PROVIDERS: PCP Nurse Practitioner; Visit Provider Internal Medicine Hematology & Oncology
DX: R91.1 Solitary pulmonary nodule (principal)
CPT/HCPCS: 71250

== ENCOUNTER 2025-09-26 08:15 | Outpatient (CLI) | payer BC, SELFPAY ==
--- NOTE | ~2025-09-26 | US_ITS ---
EXAMINATION: US aorta, 09/26/2025 8:32 CONTRACT ADMINISTRATION SPECIALIST HISTORY: Z72.0 - Tobacco use Comparison: None Technique: Dai-scale and color Doppler images were obtained. Findings: There is no aneurysmal dilatation of the aorta or the proximal common iliac arteries. Incidental note made of increased echogenicity of the liver which may relate to hepatic steatosis versus hepatocellular disease, clinical correlation is required. IMPRESSION: 1. No aneurysm identified. Incidental findings above Reviewed, dictated and finalized at location P. RACT ADMINISTRATION SPECIALIST
--- OUTSIDE RECORDS SUMMARY | 2025-09-26 08:19 | XMS_ITS | Encounter Summary ---
Author Organization [facility] Address [address] [facility] [place] [address] Care Team Providers Care [place] Pilot Name Role Phone Dante Ramos MD Primary Care Provider [phone] Encounter Details Date Type Department Care Team (Late st Contact Info) Description 04/21/2023 Lab Requisition [facility] - Pathology Lab [address] [place] [address] Charles Cadet MD [facility] [address] [phone] Illness, unspecified Social History Tobacco Use Types [...] CDT) Case Report Surgical Pathology Report Case: [id number] Authorizing Provider: Charles Cadet MD Collected: 04/10/2023 09:55 AM Ordering Location: [facility] Pathology Lab Received: 04/21/2023 12:03 PM Pathologist: [...] advised. - See interpretation. 04/23/2023 9:46 AM [facility] PATHOLOGY LAB at 0946 CDT [...] to tissue section drop-out. 04/23/2023 9:46 AM [facility] PATHOLOGY LAB Clinical History 04/23/2023 9:46 AM [facility] PATHOLOGY LAB Materials Received Received are 3 slide(s), and 1 block labeled [id number] along with a copy of the outside pathology report. [place] [address]. All original materials are returned to the referring institution, along with a copy of our final report. 04/23/2023 9:46 AM [facility] PATHOLOGY LAB Pathologist Location at [facility] 04/23/2023 9:46 AM [facility] PATHOLOGY LAB Disclaimer The performance [...] attending (teaching) pathologist. 04/23/2023 9:46 AM CDT [facility] PATHOLOGY LAB Embedded Images 04/23/2023 9:46 AM CDT [facility] PATHOLOGY LAB Pathology/Cytolo gy BIOPSY OF LYMPH NODE / Unknown 04/10/2023 9:55 AM CDT 04/21/2023 12:03 PM CDT Charles Cadet MD LAB - PATHOLOGY/CYTOLOGY ORDERAB LES Final Result [facility] PATHOLOGY LAB [address] [phone] documented in this encounter Visit Diagnoses Diagnosis Illness, unspecified documented in this encounter Care Teams [place] Pilot Relationship Specialty Start Date End Date Dante Ramos MD [address] [facility] [address] [place] [address] PCP - General 07/21/19 documented as of this encounter
--- OUTSIDE RECORDS SUMMARY | 2025-09-26 08:19 | XMS_ITS | Clinical Summary ---
Author Organization [facility] Address [address] [facility] [place] [address] Care Team Providers Care Gastroenterology Nurse Name Role Phone Dante Ramos MD Primary Care Provider [phone] Source Comments [facility],non-owned Affiliates and Associated Physician Practices is amultiple site organization consisting of ambulatory clinics and hospital sitesin [place], [place], [place] and [place]. This disclosure is being madepursuant to the Care Everywhere program and may not contain all information available regarding this patient. Last updated 18.[facility] [employer] Social History Tobacco Use Types Packs/Day Years [...] Relation to Subscriber:Self Name:TRISTAN JENKINS Payer ID:[id number] ([facility]) Type:PPO Address: [place] [phone] [facility] Member Subscriber Plan / Payer (Ef fective 2005-Present) Name:Tristan Jenkins Relation to Subscriber:Self Name:TRISTAN JENKINS Payer ID:[id number] ([facility]) Type:PPO Address: [place] [phone] [facility] Care Teams Gastroenterology Nurse Relationship Specialty Start Date End Date Dante Ramos MD [address] [facility] [address] [place] [address] PCP - General 07/21/19
--- OUTSIDE RECORDS SUMMARY | 2025-09-26 08:19 | XMS_ITS | Encounter Summary ---
Author Organization [facility] [employer] [facility] Address [address] [place] [address] Care Team Providers Care Printed Circuit Layout Taper Name Role Phone Edmar Cervantes DO Primary Care Provider Encounter Details Date Type Department Care Team (Late Contact Info) Description 09/25/[address] [facility] Oncology and Hematology Carl [address] [place] [address] Alex Garcia MD [address] [facility] [address] [place] [address] Mantle cell lymphoma, unspecified body region [...] (Late Contact Info) Description 10/02/2025 9:45 AM SOLAR SALES ESTIMATOR Office Visit [facility] Oncology and Hematology - Carl [address] [place] [address] Alex Garcia MD [address] [facility] [address] [place] [address] documented as of this encounter Visit Diagnoses Diagnosis Mantle cell lymphoma, unspecified body region (CMS/HCC) documented in this encounter Care Teams Printed Circuit Layout Taper Relationship Specialty Start Date End Date Edmar Cervantes DO [address] [facility] [address] [facility] [address] [place] [phone] PCP - General Internal Medicine 08/15/24 documented as of this encounter
--- OUTSIDE RECORDS SUMMARY | 2025-09-26 08:19 | XMS_ITS | Encounter Summary ---
Author Organization [facility] Address [address] [facility] [place] [address] Care Team Providers Care Inside Sales Person Name Role Phone Dante Ramos MD Primary Care Provider [phone] Encounter Details Date Type Department Care Team (Late st Contact Info) Description 04/10/2023 Lab Requisition [facility] - Pathology Lab [address] [place] [address] Charles Cadet MD [facility] [address] [phone] Localized enlarged lymph nodes Social History Tobacco [...] AM CDT) Case Report Flow Cytometry Case: [id number] Authorizing Provider: Charles Cadet MD Collected: 04/10/2023 09:55 AM Ordering Location: [facility] Care Pathology Lab Received: 04/10/2023 04:17 PM Pathologist: Jin Morton MD Specimen: Lymph Node, Left Axilla Lymph Node 04/13/2023 10:49 AM CDT [facility] PATHOLOGY LAB Final Diagnosis Axillary lymph node, left, flow cytometric immunophenotypic analysis: - CD5-positive mature B-cell lymphoma (52.6% of total flow events). - See interpretation. 04/13/2023 10:49 AM [facility] PATHOLOGY LAB at 1049 CDT Flow [...] the flow cytometry specimen is reviewed for water quality manager purposes. Correlation with clinical findings, tissue morphology and additional ancillary studies is required. 04/13/2023 10:49 AM [facility] PATHOLOGY LAB Flow Cytometry Results Differential Result Comment Flow Cell Count /uL 3,600 Total Viability % 86.0 Lymphocytes % 100 Dim CD45 Region % 0 Monocytes % 0 Granulocytes % 0 04/13/2023 10:49 AM [facility] PATH[facility] Reason for test Localized enlarged lymph nodes 785.6 04/13/2023 10:49 AM [facility] PATH[facility] Client Specimen ID # [id number] 04/13/2023 10:49 AM [facility] PATH[facility] LAB Number of markers 16 were performed. A-2 Flow CD10 A-4 Flow CD20 A-5 Flow CD23 A-10 Flow CD2 A-11 Flow CD3 A-12 Flow CD4 A-16 Flow CD1a A-3 Flow CD19 A-6 Flow CD34 A-7 Flow CD45 A-13 Flow CD5 A-14 Flow CD7 A-15 Flow CD8 A-17 Flow CD30 A-8 [place]+CD19+ A-9 Lambda+CD19+ 04/13/2023 10:49 AM [facility] PATH[facility] LAB Pathologist Location at [facility] 04/13/2023 10:49 AM [facility] PATHOLOG[facility] LAB Disclaimer Test performed at [facility], [address] [place] [address], [address]. *The established laboratory minimum viability is 70%. [...] complexity clinical testing. 04/13/2023 10:49 AM CDT [facility] PATHOLOGY LAB Embedded Images 10:49 AM CDT [facility] PATHOLOGY LAB Pathology/Cytolo gy ENTIRE LYMPH NODE / Unknown 04/10/2023 9:55 AM CDT 04/10/2023 4:17 PM CDT Charles Cadet MD LAB - PATHOLOGY/CYTOLOGY ORDERAB LES Final Result Performing Organization Address City/[facility] Co de Phone Number [facility] PATHOLOGY LAB [address] [phone] documented in this encounter Visit Diagnoses Diagnosis Localized enlarged lymph nodes Enlargement of lymph nodes documented in this encounter Care Teams Inside Sales Person Relationship Specialty Start Date End Date Dante Ramos MD [address] [place] [address] [place] [phone] PCP - General 07/21/19 documented as of this encounter
--- OUTSIDE RECORDS SUMMARY | 2025-09-26 08:19 | XMS_ITS | Clinical Summary ---
Author Organization [facility] Aracelis ann Robb Address [address] [place] [address] Care Team Providers Care Energy Assistant Name Role Phone Edmar Cervantes Primary Care [...] Department Care Team Description 09/25/2025 Orders Only [facility] Oncology and Hematology - [address] [place] [id number] Alex Garcia MD Mantle cell lymphoma, unspecified body region (CMS/HCC) 09/18/2025 Orders Only [facility] Oncology and Hematology - [place] [address] [place] [address] Alex Garcia MD 09/11/2025 Orders Only [facility] Oncology and Hematology - [address] [place] [address] Alex Garcia MD Mantle cell lymphoma, unspecified body region ([facility]/HCC) 08/28/2025 Orders Only [facility] Oncology and Hematology - [place] [address] [place] [address] Alex Garcia MD Mantle cell lymphoma, unspecified body region (CMS/HCC) 08/14/2025 Orders Only [facility] Oncology and Hematology - [address] [place] [address] Alex Garcia MD Mantle cell lymphoma, unspecified body region (CMS/HCC) 08/07/2025 9:45 AM CDT Office Visit [facility] Oncology and Hematology - [address] [place] [address] Alex Garcia MD Mantle cell lymphoma, unspecified body region (CMS/HCC) (Primary Dx); Lung nodule 08/07/2025 Orders Only [facility] Oncology and Hematology - [address] [place] [address] Alex Garcia MD 08/01/2025 Orders Only [facility] Oncology and Hematology - [place] [address] [place] [phone] Alex Garcia MD 07/31/2025 Orders Only [facility] Oncology and Hematology - [place] [id number] Alex Garcia MD Mantle cell lymphoma, unspecified body region (CMS/HCC) 07/25/2025 Orders Only [facility] Oncology and Hematology - [place] [address] [place] [address] Alex Garcia MD 07/21/2025 Orders Only [facility] Oncology and Hematology - [place] [address] [place] [id number] Alex Garcia MD Mantle cell lymphoma, unspecified [...] st Contact Info) Description 10/02/2025 9:45 AM PRACTICE OFFICE ASSOCIATE Office Visit [facility] Oncology and Hematology - [place] [address] [facility] [address] [place] [address] Alex Garcia MD [address] [facility] [address] [place] [address] Health Maintenance Due Date Last [...] COMPREHENSIVE METABOLIC PANEL Routine 09/18/2025 4:24 PM PRACTICE OFFICE ASSOCIATE CBC WITH AUTODIFFERENTIAL Routine 2024 4:07 PM PRACTICE OFFICE ASSOCIATE CBC WITH AUTODIFFERENTIAL Routine 2024 1:[address] CHEST ABDOMEN PELVIS W CONT Routine 07/31/2025 12:35 PM CDT CBC WITH AUTODIFFERENTIAL Routine 2024 11:20 AM CDT COMPREHENSIVE METABOLIC PANEL Routine 07/24/2025 10:38 AM CDT from Last 3 Months Results * COMPREHENSIVE METABOLIC PANEL (09/18/2025 4:24 PM PRACTICE OFFICE ASSOCIATE) Only the most recent of2 resultswithin the time period is included. Blood us Alex Garcia MD CHEMISTRY ORDERABLES Final Resu lt * CBC WITH AUTODIFFERENTIAL (09/18/2025 4:07 PM PRACTICE OFFICE ASSOCIATE) Only the most recent of3 resultswithin the time period is included. Blood us Alex Garcia MD HEMATOLOGY ORDERABLES Final Res ult * CT CHEST ABDOMEN PELVIS W CONT (07/31/2025 12:35 PM CDT) Anatomical Region Laterality Modality Chest Computed Tomogra phy us Alex Garcia MD CT ORDERABLES Final Result from Last 3 Months Insurance [employer] BLUE ACCESS/TRUE BLUE PPO Care Teams Energy Assistant Relationship Specialty Start Date End Date Edmar Cervantes DO [address] [facility] [address] [facility] [address] [place] [id number] PCP - General Internal Medicine 08/15/24
--- OUTSIDE RECORDS SUMMARY | 2025-09-26 08:19 | XMS_ITS | Clinical Summary ---
Author Organization [facility] [address] Address [address] [place] [phone] Care Team Providers Care General Studies Program Chair Name Role Phone Roland Cisse NP Primary Care Provider [phone] Allergies No known active allergies Medications No known medications Active Problems No known active problems Social History Tobacco Use Types Packs/Day Years Used Date Smoking Tobacco: Never Assessed Personal Safety Answer Date Recorded Getting School Help Needed Not on file 08/01 Sex and Gender Information Value Date Recorded Sex Assigned at Not on file Legal 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
== END 2025-09-26 08:16 | disposition home or self-care (01) ==
PROVIDERS: PCP Nurse Practitioner; Visit Provider Nurse Practitioner
DX: Z72.0 Tobacco use (principal)
CPT/HCPCS: 76775